=== PATIENT | male | born 1975 | race Caucasian/White ===

== ENCOUNTER → 2018-12-14 09:09 | Outpatient (CLI) | payer BC, SELFPAY ==
--- NOTE | 2018-12-14 09:19 | US_ITS ---
US scrotum HISTORY: ITS.REASON: SCROTOL PAIN ORDERING PHYSICIAN: Shaun Watts MD PATIENT AGE: 43 years Comparison: None FINDINGS: RIGHT TESTICLE: The right testicle has an unremarkable appearance measuring Right testicle. No testicular mass, hydrocele, spermatocele, or varicocele evident. Blood flow is noted to the right testicle. LEFT TESTICLE: The left testicle has an unremarkable appearance measuringLeft testicle. No mass, hydrocele, spermatocele, or varicocele evident. Blood flow is noted to the left testicle. IMPRESSION: Normal scrotal ultrasound.
== END ==
PROVIDERS: PCP Family Medicine; Visit Provider Family Medicine
DX: N50.82 Scrotal pain (principal)
CPT/HCPCS: 76870

== ENCOUNTER → 2020-03-04 08:26 | Outpatient (CLI) | payer BC, SELFPAY ==
--- NOTE | 2020-03-04 | CA_ITS ---
APPROVED REPORT EXAM: Comprehensive 2D, Doppler, and color-flow Echocardiogram Quality Control Auditor: Tete Gomez CRT Ht: 6 ft 0 in Wt: 145lbs BSA: 1.86 BP: 110/60 mmHg Indications: Lyme disease, cp, Richmond's disease 2D Dimensions LVOT 1.81 cm (M/F) 1.5-2.5 M-Mode Dimensions RVDd 1.80 cm (0.9-2.6) LVDd 3.84 cm (3.5-5.7) LVDs 2.88 cm (3.5-5.7) IVSd 1.12 cm (0.6-1.1) PWd 0.91 cm (0.6-1.1) EF (Teich) 50.10% FS 25.00% EDV (Teich) 63.50 mL ESV (Teich) 31.70 mL LV Diastology E/A Ratio 1.24 Mitral Valve MV A Velocity 47.00 (40-130 cm/s) Left Ventricle Left atrium is normal size, left ventricle is normal size, there is no concentric left ventricular hypertrophy, visually estimated ejection fraction 55% with no regional wall motion abnormality. Diastolic parameters are inconclusive. Right Ventricle Right atrium and right ventricular normal size and contractility. Aortic Valve Aortic valve is grossly normal, there is no aortic stenosis or aortic insufficiency. Mitral Valve Mitral valve is grossly normal, there is mild mitral regurgitation. Tricuspid Valve Tricuspid valve grossly normal, there is mild tricuspid regurgitation, tricuspid regurgitation jet velocity is inadequate for calculation of the right ventricular systolic pressure. Pulmonic Valve Pulmonic valve is poorly visualized. Great Vessels Aortic root is normal size. Pericardium No significant pericardial effusion noted. Conclusion 1. Normal left ventricular size, preserved left ventricular systolic function, visually estimated ejection fraction 55% with no regional wall motion abnormality, diastolic parameters are inconclusive. 2. Mild mitral and tricuspid regurgitation. 3. No significant pericardial effusion noted. Electronically signed by : Casey Markham, 03/04/2020 19:49:07
== END ==
PROVIDERS: PCP Family Medicine; Visit Provider Family Medicine
DX: A69.20 Lyme disease, unspecified (principal)
CPT/HCPCS: 93306

== ENCOUNTER → 2021-03-28 12:22 | Outpatient (CLI) | payer BC, SELFPAY ==
[2021-03-28 12:53] LABS: Uric Acid 5.2 mg/dl (3.5-8.5)
[2021-03-28 13:00] LABS: Erythrocyte Sedimentation Rate 4 mm/hr (0-15)
== END ==
PROVIDERS: Visit Provider Family Medicine
DX: M79.672 Pain in left foot (principal)
CPT/HCPCS: 84550; 85651; 86140

== ENCOUNTER → 2021-04-09 12:16 | Outpatient (CLI) | payer BC, SELFPAY ==
--- NOTE | 2021-04-09 12:28 | XR_ITS ---
PROCEDURE: XR FOOT LT MIN 3V CLINICAL INDICATION: LT FOOT PAIN COMPARISON: No exams were available for comparison FINDINGS: No fracture or dislocation. No lytic or blastic change. There is normal mineralization. The joint spaces are well-preserved. No significant degenerative/arthritic changes. No erosive changes evident. Other findings:None. IMPRESSION: No acute findings. Dictated by: Torsten Zaragoza MD 04/09/2021 12:54 Torsten Zaragoza MD in [place] 04/09/2021 12:54
== END ==
PROVIDERS: PCP Family Medicine; Visit Provider Family Medicine
DX: M79.672 Pain in left foot (principal)
CPT/HCPCS: 73630

== ENCOUNTER → 2022-02-24 17:11 | Outpatient (CLI) | payer BC, SELFPAY ==
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
== END ==
PROVIDERS: PCP Family Medicine; Visit Provider Family Medicine
DX: S60.221A Contusion of right hand, initial encounter (principal)
CPT/HCPCS: 73130

== ENCOUNTER → 2022-03-22 14:22 | Outpatient (CLI) | payer BC, SELFPAY ==
--- NOTE | 2022-03-22 14:28 | XR_ITS ---
FINAL REPORT CLINICAL HISTORY: FRACTURE OF FIFTH METACARPAL BONE, RIGHT HAND. COMPARISON: February 24, 2022 FINDINGS: AP, lateral and oblique views of the right hand were obtained. There is a fracture of the head of the right 5th metacarpal with slight volar angulation. There is no significant callus formation. There is no other osseous abnormality. The joint spaces are preserved. The soft tissues are normal. IMPRESSION: Fracture of the head of the 5th metacarpal with no significant callus formation. Reviewed, Interpreted and Dictated by Alison Burt MD Transcribed by Tera Lopez Authenticated by Alison Burt MD on 03/22/2022 04:19:44 PM [facility]
== END ==
PROVIDERS: PCP Family Medicine; Visit Provider Family Medicine
DX: S62.396D Other fracture of fifth metacarpal bone, right hand, subsequent encounter for fracture with routine healing (principal)
CPT/HCPCS: 73130

== ENCOUNTER → 2022-03-30 15:06 | Outpatient (CLI) | payer BC, SELFPAY ==
--- NOTE | 2022-03-30 15:13 | XR_ITS ---
FINAL REPORT CLINICAL HISTORY: FX OF 5TH METACARPAL BONE, f/u COMPARISON: March 22, 2022 FINDINGS: RIGHT HAND 3 views were obtained. There is a fracture of the 5th distal metacarpal. The bony alignment is stable. There is no significant callus formation. The joint spaces are intact. There is no soft tissue abnormality. IMPRESSION: 5th metacarpal fracture with no significant callus formation. Reviewed, Interpreted and Dictated by Jackson Ponce III, MD Transcribed by Dulce Maria Oconnell Authenticated by Jackson Ponce III, MD on 03/30/2022 04:23:04 PM [facility][1]
== END ==
PROVIDERS: PCP Family Medicine; Visit Provider Nurse Practitioner Family
DX: S62.396D Other fracture of fifth metacarpal bone, right hand, subsequent encounter for fracture with routine healing (principal)
CPT/HCPCS: 73130

== ENCOUNTER → 2022-04-13 14:36 | Outpatient (CLI) | payer BC, SELFPAY ==
--- NOTE | 2022-04-13 14:40 | XR_ITS ---
FINAL REPORT CLINICAL HISTORY: FX OF FIFTH METACARPAL BONE COMPARISON: March 30, 2022 FINDINGS: 3 views of the right hand were obtained. There is a mildly impacted fracture of the distal 5th metacarpal. Bony alignment is stable. There is no significant callus formation. The joint spaces are intact. There is no soft tissue abnormality. IMPRESSION: Stable fracture of the distal 5th metacarpal without significant callus formation. Reviewed, Interpreted and Dictated by Jackson Ponce III, MD Transcribed by Tera Lopez Authenticated and [facility]
== END ==
PROVIDERS: PCP Nurse Practitioner Family; Visit Provider Nurse Practitioner Family
DX: S62.396D Other fracture of fifth metacarpal bone, right hand, subsequent encounter for fracture with routine healing (principal)
CPT/HCPCS: 73130

== ENCOUNTER 2024-08-31 16:50 | Outpatient (CLI) | payer BC, SELFPAY ==
--- OUTSIDE RECORDS SUMMARY | 2024-08-31 16:53 | XMS_ITS ---
Author Organization [facility] Address [address] [place] [id number] Care Team Providers Care Laborer [place] Name Role Phone Shaun Watts Primary Care Provider [phone] Geovanny Gilliland Unavailable [phone] ALLERGIES No Known Allergies RESULTS Component Value Reference Range Notes P-Comprehensive Metabolic Pa ion (CMP) Reviewed date:08/14/2024 04:21:16 PM Interpretation:K+ 5.7 Performing Lab: Notes/Report: Test performed by [facility] [address] [place] [address] , [address], [place] [address] Amari Woodward MD, Work From Home CLIA: [id number] Sodium 137 135-145 mmol/L Potassium 5.7 3.5-5.3 mmol/L Chloride 99 97-108 mmol/L CO2 28 22-32 mmol/L Glucose 91 65-99 mg/dL BUN 9 6-20 mg/dL Creatinine 0.74 0.70-1.30 mg/dL Calcium 10.0 8.6-10.4 mg/dL eGFR by Creatinine 110 >59 mL/min/1.73m2 Protein 6.7 6.0-8.3 g/dL Albumin 4.7 3.5-5.3 g/dL Alkaline Phosphatase 62 40-129 IU/L ALT (SGPT) 22 <5-55 IU/L AST (SGOT) 15 <5-46 IU/L Bilirubin, Total 0.2 <0.2-1.2 mg/dL A/G Ratio 2.4 1.1-2.5 REASON FOR VISIT 6 month check, Needs colon cancer screening MEDICATIONS Medication SIG (Take, Route, Frequency, Duration) Notes Start Date End Date Status busPIRone HCl 5 MG 1 tab(s) orally 2 ti mes a day for 30 day(s) Active predniSONE 5 MG 1.5 tab(s) orally on ce a day Active Benztropine Mesylate 0.5 MG 1 tab(s) ora lly once a day (at bedtime) for 90 days 02/19/2010 Active Perphenazine 2 MG 1 tab(s) orally 2 ti mes a day for 30 day(s) Active Nurtec 75 MG 1 tab(s) orally elle y as needed maximum of 8 tabs in one month 06/28/2022 Active Fludrocortisone Acetate 0.1 MG 1 tab(s) orally once a day Active Hydrocortisone 2.5 % 1 ray applied topic ally 2 times a day Active ALPRAZolam 0.25 MG 1/2 tab(s) orally 3 times a day as needed 12/26/2018 Active Synthroid 88 MCG 1 tab(s) orally once daily Active Sertraline HCl 150 MG 1 capsule Orally O nce a day for 30 day(s) Active Losartan Potassium 25 MG 1 tablet orally once a day for 90 days Active IMMUNIZATIONS Vaccine Route Administration Date Status Comme nts Tamika Hendrickson (6months&older) IM Intramuscular 08/09/2024 Administered VITAL SIGNS Weight 146.0 lbs 08/09/2024 Blood pressure systolic 120 mm Hg 08/09/20 24 Blood pressure diastolic 80 mm Hg 024 Heart Rate 74 /min 08/09/2024 Height 73 in 08/09/2024 BMI 19.26 kg/m2 08/09/2024 Encounters Encounter Location Date Provider Diagnosis [facility] [address] [place], [place] [id number] 08/09/2024 Geovanny Gilliland Encounter for immunization Z23 ; Obsessive-compulsive disorder, unspecified type F42.9 ; Panic attacks F41.0 ; Primary hypertension I10 and Migraine without status migrainosus, not intractable, unspecified migraine type G43.909 ASSESSMENTS Encounter Date Diagnosis Assessment Notes Treatment Notes Treatment Clinical Notes 08/09/2024 Encounter for immunization (ICD-10 - Z23) 08/09/2024 Obsessive-compulsive disorder, unspecified type (ICD-10 - F42.9) 08/09/2024 Panic attacks (ICD-10 - F41.0) 08/09/2024 Primary hypertension (ICD-10 - I10) 08/09/2024 Migraine without status migrainosus, not intractable, unspecified migraine type (ICD-10 - G43.909) PLAN OF TREATMENT Medication Medication Name Sig Start Date Stop Date Notes Nurtec 75 MG 1 tab(s) orally elle y as needed maximum of 8 tabs in one month 06/28/2022 Next Appt Details Follow Up: 6 Months, Reason: Provider Name:Geovanny rincon, 02/11/2025 10:30:00 AM, [address] [facility], [address], [place], [place], [id number], Progress Notes * Examination Category Sub-Category Detail Notes General Examination HEENT: unremarkable Heart: RSR Lungs: clear to auscultatio n, bronchial breath sounds Abdomen: soft and nontender, no organomegaly or masses Extremities: no leg edema General Appearance: NAD Skin: normal, no rash. Neurologic Exam: Intact, gait normal Neck: supple, no lymphaden opathy Oral cavity: no lesions, mucosa m oist and WNL, no erythema Peripheral pulses: normal Back: mild dorsal kyphosis Chest: normal shape and exp ansion History and Physical Notes * HPI (History of Present Illness) Category Sub-Category Detail Notes Cardiology Short of Breath Chest Pain Palpitations Dizziness
--- OUTSIDE RECORDS SUMMARY | 2024-08-31 16:53 | XMS_ITS ---
Author Organization [facility] Address [address] [facility] [address] [facility] [address] [place] [id number] Care Team Providers Care Director Of Cardiology Name Role Phone Sahun Watts Primary Care Provider REASON FOR VISIT PA approved Encounters Encounter Location Date Provider Diagnosis [facility] [address] [facility] [address] [facility] [address] [place] [id number] 07/13/2024 Shaun Watts PLAN OF TREATMENT Next Appt Details Provider Name:Geovanny Hilton er, 02/11/2025 10:30:00 AM, [address] [facility], [address], [place], [id number],
--- OUTSIDE RECORDS SUMMARY | 2024-08-31 16:53 | XMS_ITS ---
Author Organization [facility] Address [address] [facility] [address] [facility] [address] [place] [id number] Care Team Providers Care Pulp Grinder Name Role Phone Shaun Watts Primary Care Provider [phone] Geovanny Willard [phone] REASON FOR VISIT Test results* Encounters Encounter Location Date Provider Diagnosis [facility] [address] [facility] [address] [facility] [address] [place] [id number] 08/14/2024 Geovanny Gilliland Primary hypertension I10 ASSESSMENTS Encounter Date Diagnosis Assessment Notes Treatment Notes Treatment Clinical Notes 08/14/2024 Primary hypertension (ICD-10 - I10) PLAN OF TREATMENT Pending Test Test Name Order Date H-CMP 08/14/2024 Next Appt Details Provider Name:Geovanny Hilton er, 02/11/2025 10:30:00 AM, [address] [facility] [address] [facility], [address], [place], [id number],
--- OUTSIDE RECORDS SUMMARY | 2024-08-31 16:54 | XMS_ITS | Patient Health Record ---
[facility] Address [address] [place] [id number] Care Team Providers Care Snag Grinder Name Role Phone Shaun Watts Primary Care Provider [phone] Geovanny Gilliland Unavailable [phone] ALLERGIES No Known Allergies RESULTS Component Value Reference Range Notes P-Comprehensive Metabolic Pa ion (CMP) Reviewed date:08/14/2024 04:21:16 PM Interpretation:K+ 5.7 Performing Lab: Notes/Report: Test performed by [facility] [address] [place] [address] , [address], [place] [address] Amari Woodward MD, Plug Assembler CLIA: [id number] Sodium 137 135-145 mmol/L Potassium 5.7 3.5-5.3 [...] 0.2 <0.2-1.2 mg/dL A/G Ratio 2.4 1.1-2.5 P-TSH Reviewed date:03/01/2024 11:59:10 AM Interpretation: Normal Performing Lab: Notes/Report: Test performed by [facility] [address] [place] [address] , [address], [place] [address] Amari Woodward MD, Plug Assembler CLIA: [id number] TSH 1.65 0.43-5.25 mU/L P-Comprehensive Metabolic Pa ion (CMP) Reviewed date:03/01/2024 11:59:38 AM Interpretation: Normal Performing Lab: Notes/Report: Test performed by [facility] [address] [place] [address] , [address], [place] [address] Amari Woodward MD, Plug Assembler CLIA: [id number] Sodium 138 135-145 mEq/L Potassium 4.4 3.5-5.3 mEq/L Chloride 101 97-108 mEq/L CO2 27 22-32 mEq/L Glucose 72 65-99 mg/dL BUN 10 6-20 mg/dL Creatinine 0.75 0.70-1.30 mg/dL Calcium 9.9 8.6-10.4 mg/dL eGFR by Creatinine 110 >59 mL/min/1.73m2 Protein 7.1 6.0-8.3 g/dL Albumin 5.0 3.5-5.3 g/dL Alkaline Phosphatase 72 40-129 IU/L ALT (SGPT) 17 <5-55 IU/L AST (SGOT) 15 <5-46 IU/L Bilirubin, Total 0.2 <0.2-1.2 mg/dL A/G Ratio 2.4 1.1-2.5 mg/dL REASON FOR REFERRAL No Information MEDICATIONS Medication SIG (Take, Route, Frequency, Duration) Notes Start Date End Date Status busPIRone HCl 5 MG 1 tab(s) orally 2 ti mes a day for 30 day(s) Active Sertraline HCl 150 MG 1 capsule Orally O nce a day for 30 day(s) Active Nurtec 75 MG 1 tab(s) orally elle y as needed maximum of 8 tabs in one month 06/28/2022 Active Fludrocortisone Acetate 0.1 MG 1 tab(s) orally once a day Active predniSONE 5 MG 1.5 tab(s) orally on ce a day Active Benztropine Mesylate 0.5 MG 1 tab(s) ora lly once a day (at bedtime) for 90 days 02/19/2010 Active Perphenazine 2 MG 1 tab(s) orally 2 ti mes a day for 30 day(s) Active Losartan Potassium 25 MG 1 tablet orally once a day for 90 days Active Hydrocortisone 2.5 % 1 ray applied topic ally 2 times a day Active ALPRAZolam 0.25 MG 1/2 tab(s) orally 3 times a day as needed 12/26/2018 Active Synthroid 88 MCG 1 tab(s) orally once daily Active IMMUNIZATIONS Vaccine Route Administration Date Status Comme nts COVID 19 Pfizer Unknown 04/15/2021 Administered COVID 19 Pfizer Unknown 05/16/2021 Administered COVID 19 Pfizer Unknown 11/14/2021 Administered Fluzone Intradermal Quad private(18-64yrs) ID Intradermal 07/12/2016 Administered Fluzone Quad (6months&older) IM Intramuscular 06/30/2015 Administered Fluzone Quad (6months&older) IM Intramuscular 07/25/2017 Administered Fluzone Quad (6months&older) IM Intramuscular 07/31/2018 Administered Fluzone Quad (6months&older) IM Intramuscular 2019 Administered Fluzone Quad (6months&older) IM Intramuscular 10/14/2020 Administered Fluzone Quad (6months&older) IM Intramuscular 07/28/2022 Administered Fluzone Quad (6months&older) IM Intramuscular 07/18/2023 Pending Fluzone Quad (6months&older) IM Intramuscular 08/09/2024 Administered Hepatitis A (adult) Unknown 10/11/2018 Administered Tetanus Tdap-Adacel (over 7yrs) IM Intramuscular 08/07/2012 Administered Tetanus Tdap-Adacel (over 7yrs) IM Intramuscular 06/28/2022 Administered xFlu shot-36 months and older IM Intramuscular 08/03/2010 Administered xFlu shot-36 months and older IM Intramuscular 08/02/2011 Administered xFluzone (6mos and older)-trivalent IM Intramuscular 07/22/2014 Administered xFluzone Intradermal (18-64yrs)-trivalent ID Intradermal 08/07/2012 Administered xFluzone Intradermal (18-64yrs)-trivalent ID Intradermal 07/26/2013 Administered SOCIAL HISTORY Sex Assigned At : Social History Observation Description Sex Assigned At Unknown PROBLEMS Problem Type ICD Code Onset Dates Problem Status W/U Status Risk SNOMED Code Notes Problem Depression with anxiety (F41.8) Active confirmed 010135112 Problem Bipolar disorder, in partial remission, most recent episode depressed (F31.75) Active confirmed 03634968 Problem Other headache syndrome (G44.89) Active confirmed 787190165 Problem Other insomnia (G47.09) Active confirmed 086670750 Problem Contusion of right hand, initial encounter (S60.221A) Active confirmed 9210310 Problem Other fracture of fifth metacarpal bone, right hand, subsequent encounter for fracture with routine healing (S62.396D) Active confirmed 839155290 Problem Obsessive compulsive disorder (F42) Active confirmed 294206740 Problem Chronic fatigue (R53.82) Active confirmed 93326201 Problem Panic attacks (F41.0) Active confirmed 792509557 Problem Migraine without status migrainosus, not intractable, unspecified migraine type (G43.909) Active confirmed 01125333 Problem Kidney stone on right side (N20.0) Active confirmed 10594370 Problem Hyperlipidemia, unspecified hyperlipidemia type (E78.5) Active confirmed 66171096 Problem Hypothyroidism, unspecified type (E03.9) Active confirmed 88544757 Problem Lyme disease (A69.20) Active confirmed 75961675 Problem Atopic dermatitis, unspecified type (L20.9) Active confirmed 02660062 Problem [place] disease (E27.1) Active confirmed 953775014 Problem Obsessive-compulsiv e disorder, unspecified type (F42.9) Active confirmed 307418205 Problem Manic episode (F30.9) Active confirmed 704627769 Problem Bipolar 2 disorder, major depressive episode (F31.81) Active confirmed 47861314 Problem Paranoia (F22) Active confirmed 7697627 09 Problem Primary hypertension (I10) Active confirmed 30609432 Problem Closed displaced fracture of other part of fifth metacarpal bone of right hand, initial encounter (S62.396A) Active confirmed 256585645 VITAL SIGNS Heart Rate 74 /min 08/09/2024 Blood pressure diastolic 80 mm Hg 08/09/2024 Height 73 in 08/09/2024 Blood pressure systolic 120 mm Hg 08/09/2024 Weight 146.0 lbs 08/09/2024 BMI 19.26 kg/m2 08/09/2024 Encounters Encounter Location Date Provider Diagnosis [facility] [address] [facility] [address] [place], [place] [phone] 02/27/2024 Geovanny Gilliland Juan Jose disease E27. 1 ; Obsessive compulsive disorder F42 ; Bipolar disorder, in partial remission, most recent episode depressed F31.75 ; Primary hypertension I10 ; Other headache syndrome G44.89 ; Migraine without status migrainosus, not intractable, unspecified migraine type G43.909 and Hypothyroidism, unspecified type E03.9 [facility] [address] [facility] [address] [facility] [address] [place], [place] [id number] 04/09/2024 Shaun [place] [facility] [address] [facility] [address] [facility] [address] [place], [place] [phone] 07/13/2024 Shaun [place] [facility] [address] [facility] [address] [place], [place] [id number] 08/09/2024 Geovanny Gilliland Encounter for immunization Z23 ; Obsessive-compulsive disorder, unspecified type F42.9 ; Panic attacks F41.0 ; Primary hypertension I10 and Migraine without status migrainosus, not intractable, unspecified migraine type G43.909 [facility] [address] [place], [place] [id number] 08/14/2024 Geovanny Gilliland Primary hypertension I10 ASSESSMENTS Encounter Date Diagnosis Assessment Notes Treatment Notes Treatment Clinical Notes 08/09/2024 Encounter for immunization (ICD-10 - Z23) 08/09/2024 Obsessive-compulsive disorder, unspecified type (ICD-10 - F42.9) 02/27/2024 Obsessive compulsive disorder (ICD-10 - F42) 02/27/2024 [place] disease (ICD-10 - E27.1) 02/27/2024 Bipolar disorder, in partial remission, most recent episode depressed (ICD-10 - F31.75) 08/14/2024 Primary hypertension (ICD-10 - I10) 08/09/2024 Panic attacks (ICD-10 - F41.0) 08/09/2024 Primary hypertension (ICD-10 - I10) 02/27/2024 Primary hypertension (ICD-10 - I10) 02/27/2024 Other headache syndrome (ICD-10 - G44.89) 08/09/2024 Migraine without status migrainosus, not intractable, unspecified migraine type (ICD-10 - G43.909) 02/27/2024 Migraine without status migrainosus, not intractable, unspecified migraine type (ICD-10 - G43.909) 02/27/2024 Hypothyroidism, unspecified type (ICD-10 - E03.9) PLAN OF TREATMENT Pending Test Test Name Order Date Cologuard 04/10/2024 H-CMP 08/14/2024 Next Appt Details Provider Name:Geovanny Mcbride Yobani er, 02/11/2025 10:30:00 AM, [address], [address], [place], [place], [id number], Insurance Providers Payer Name Payer Address Payer Phone Subscriber Number Group Number Insured Name Patient Relationship to Insured Coverage Start Date Coverage End Date [facility] [address] [place] [address] [id number] VIET PAPPAS Self - patient is the insured MEDICAL (GENERAL) HISTORY Medical History History ICD Code [place]'s disease, followed by Endo at [facility] depression/anxiety osteoporosis, Dx: Jul 2014, followed by Endo at Impaired fasting glucose, Dx: 2016, foll owed by Endo at kidney stones, right side, Dx: 2018 Lyme disease 01/2020 Surgical History Surgery Date(Month/Year) Hospitalization History Reason Date(Month/Year) Anxiety [facility] 08/20/15 [facility] - Vomiting/Dehydration 2015 [facility] - abdominal pain, back nano n 12/14/18
[2024-08-31 17:10] LABS: Albumin Level 4.7 g/dl (3.5-5.0); Chloride 100 mmol/L (98-107); Potassium 3.9 mmoL/L (3.5-5.1); Sodium 135 mmol/L (136-145)
[2024-08-31 17:13] LABS: Alanine Aminotransferase 23 U/L (12-78); Albumin/Globulin Ratio 1.8 (1.1-1.8); Alkaline Phosphatase 55 U/L (38-126); Anion Gap 10.9 mEq/L (5-15); Aspartate Amino Transferase 27 U/L (17-59); Bilirubin,Total 0.4 mg/dl (0.2-1.3); Blood Urea Nitrogen 11 mg/dl (9-20); Carbon Dioxide 28 mmol/L (22.0-30.0); Estimated Glomerular Filt Rate 119 ml/min (>60); GFR (African American) 144 ML/MIN (>60); Globulin 2.6 g/dL (1.3-3.2); Total Protein,Serum 7.3 g/dl (6.3-8.2)
[2024-08-31 17:14] LABS: Calcium 9.4 mg/dl (8.4-10.2); Glucose 99 mg/dl (74-100)
== END 2024-08-31 23:59 | disposition home or self-care (01) ==
LOC: LAB 16:52
PROVIDERS: PCP Family Medicine; Visit Provider Family Medicine
DX: I10 Essential (primary) hypertension (principal)
CPT/HCPCS: 36415; 80053

== ENCOUNTER 2024-12-20 11:41 | Outpatient (CLI) | payer BC, SELFPAY ==
[2024-12-20 12:25] LABS: Albumin Level 4.3 g/dl (3.5-5.0); Chloride 101 mmol/L (98-107); Potassium 4.1 mmoL/L (3.5-5.1); Sodium 135 mmol/L (136-145)
[2024-12-20 12:28] LABS: Alanine Aminotransferase 24 U/L (12-78); Albumin/Globulin Ratio 2.2 (1.1-1.8); Alkaline Phosphatase 60 U/L (38-126); Anion Gap 8.1 mEq/L (5-15); Aspartate Amino Transferase 22 U/L (17-59); Bilirubin,Total < 0.1 mg/dl (0.2-1.3); Blood Urea Nitrogen 11 mg/dl (9-20); Calcium 9.4 mg/dl (8.4-10.2); Carbon Dioxide 30 mmol/L (22.0-30.0); Estimated Glomerular Filt Rate 143 ml/min (>60); GFR (African American) 173 ML/MIN (>60); Glucose 91 mg/dl (74-100); Total Protein,Serum 6.3 g/dl (6.3-8.2)
[2024-12-20 13:57] LABS: Basophils # 0.1 K/mm3 (0-0.2); Basophils % 0.8 % (0.1-2.0); Eosinophils # 0.2 K/mm3 (0.0-0.4); Eosinophils % 2.5 % (0.1-12.0); Hematocrit 39.1 % (42.0-52.0); Lymphocytes # 1.7 K/mm3 (0.7-4.5); Lymphocytes % 22.9 % (10-50); Mean Corpuscular HGB Conc 33.2 g/dL (31.8-35.4); Mean Corpuscular Hemoglobin 31.4 pg (27.0-31.2); Mean Corpuscular Volume 94.4 fl (80-94); Monocytes # 0.7 K/mm3 (0.1-1.0); Monocytes % 9.2 % (1.7-9.3); Neutrophils # 4.7 K/mm3 (1.8-7.8); Neutrophils % 62.1 % (37.0-80.0); Platelet Count 387 K/mm3 (142-424); Red Blood Count 4.14 M/mm3 (4.60-6.20); Red Cell Distribution Width 12.8 % (11.5-17.5); White Blood Count 7.6 K/mm3 (4.8-10.8)
== END 2024-12-20 23:59 | disposition home or self-care (01) ==
LOC: LAB 11:43
PROVIDERS: PCP Family Medicine; Visit Provider Physician Assistant
DX: U07.1 COVID-19 (principal)
CPT/HCPCS: 36415; 80053; 85025

== ENCOUNTER 2025-01-02 15:38 | Outpatient (CLI) | payer BC, SELFPAY ==
[2025-01-02 16:37] LABS: Basophils # 0.1 K/mm3 (0-0.2); Basophils % 0.9 % (0.1-2.0); Eosinophils # 0.1 K/mm3 (0.0-0.4); Eosinophils % 2.4 % (0.1-12.0); Hematocrit 44.1 % (42.0-52.0); Lymphocytes % 33.7 % (10-50); Mean Corpuscular Hemoglobin 31.3 pg (27.0-31.2); Mean Corpuscular Volume 91.9 fl (80-94); Mean Platelet Volume 11.3 fl (7.4-10.4); Monocytes # 0.7 K/mm3 (0.1-1.0); Monocytes % 11.9 % (1.7-9.3); Neutrophils # 2.9 K/mm3 (1.8-7.8); Neutrophils % 50.8 % (37.0-80.0); Platelet Count 268 K/mm3 (142-424); Red Cell Distribution Width 12.7 % (11.5-17.5); Reticulocyte % (Auto) 1.4 % (0.9-3.2); White Blood Count 5.8 K/mm3 (4.8-10.8)
[2025-01-02 18:21] LABS: Albumin Level 5.5 g/dl (3.5-5.0); Chloride 92 mmol/L (98-107); Potassium 4.8 mmoL/L (3.5-5.1); Sodium 127 mmol/L (136-145)
[2025-01-02 18:24] LABS: Alanine Aminotransferase 26 U/L (12-78); Albumin/Globulin Ratio 2.5 (1.1-1.8); Alkaline Phosphatase 67 U/L (38-126); Anion Gap 12.8 mEq/L (5-15); Aspartate Amino Transferase 25 U/L (17-59); Bilirubin,Total 0.5 mg/dl (0.2-1.3); Blood Urea Nitrogen 8 mg/dl (9-20); Calcium 9.9 mg/dl (8.4-10.2); Carbon Dioxide 27 mmol/L (22.0-30.0); Estimated Glomerular Filt Rate 119 ml/min (>60); GFR (African American) 144 ML/MIN (>60); Globulin 2.2 g/dL (1.3-3.2); Glucose 95 mg/dl (74-100); Iron 91 ug/dL (49-181); Total Protein,Serum 7.7 g/dl (6.3-8.2)
[2025-01-02 18:38] LABS: Folate > 20.00 ng/mL
[2025-01-02 18:59] LABS: Ferritin 175 ng/ml (17.9-464)
[2025-01-02 19:01] LABS: 25-OH Vitamin D, Total 41.7 ng/mL (30-100)
[2025-01-02 21:12] LABS: Vitamin B12 > 1000 pg/mL (239-931)
== END 2025-01-02 23:59 | disposition home or self-care (01) ==
LOC: LAB 15:39
PROVIDERS: PCP Family Medicine; Visit Provider Physician Assistant
DX: D64.9 Anemia, unspecified (principal)
CPT/HCPCS: 36415; 80053; 82306; 82607; 82728; 82746; 83540; 85025; 85044

== ENCOUNTER 2025-03-16 15:19 | Outpatient (CLI) | payer BC, SELFPAY ==
[2025-03-16 16:22] LABS: Albumin Level 4.4 g/dl (3.5-5.0); Chloride 104 mmol/L (98-107); Sodium 135 mmol/L (136-145)
[2025-03-16 16:23] LABS: Potassium 4.2 mmoL/L (3.5-5.1)
[2025-03-16 16:25] LABS: Alanine Aminotransferase 22 U/L (12-78); Anion Gap 8.2 mEq/L (5-15); Aspartate Amino Transferase 22 U/L (17-59); Blood Urea Nitrogen 15 mg/dl (9-20); Carbon Dioxide 27 mmol/L (22.0-30.0); Estimated Glomerular Filt Rate 102 ml/min (>60); GFR (African American) 124 ML/MIN (>60)
[2025-03-16 16:26] LABS: Alkaline Phosphatase 73 U/L (38-126); Calcium 9.3 mg/dl (8.4-10.2); Globulin 2.2 g/dL (1.3-3.2); Glucose 108 mg/dl (74-100); Total Protein,Serum 6.6 g/dl (6.3-8.2)
[2025-03-16 16:30] LABS: Bilirubin,Total 0.1 mg/dl (0.2-1.3)
== END 2025-03-16 23:59 | disposition home or self-care (01) ==
LOC: LAB 15:21
PROVIDERS: PCP Family Medicine; Visit Provider Family Medicine
DX: E87.1 Hypo-osmolality and hyponatremia (principal)
CPT/HCPCS: 36415; 80053

== ENCOUNTER 2025-07-15 15:29 | Outpatient (CLI) | payer BC, SELFPAY ==
--- OUTSIDE RECORDS SUMMARY | 2025-01-02 10:45 | XMS_ITS ---
[facility] Organization [facility] [place] Address [address] [facility] [address] [place] [id number] Care Team Providers Care Traffic Rate Clerk Name Role Phone Shaun Watts Primary Care Provider Candi Schmitt Unavailable [phone] Allergies No Known Allergies Results Component Value Reference Range Notes H-CBC Reviewed date:01/03/2025 01:53:26 PM Interpretation: Performing Lab: Notes/Report: WBC 5.8 4.8-10.8 K/mm3 RBC 4.80 4.60-6.20 M/mm3 HGB 15.0 14.1-18.0 g/dL HCT 44.1 42.0-52.0 % MCV 91.9 80-94 fl MCH 31.3 27.0-31.2 pg MCHC 34.0 31.8-35.4 g/dL RDW 12.7 11.5-17.5 % PLT 268 142-424 K/mm3 MPV 11.3 7.4-10.4 fl NE% 50.8 37.0-80.0 % LY% 33.7 10-50 % MO% 11.9 1.7-9.3 % EO% 2.4 0.1-12.0 % BA% 0.9 0.1-2.0 % NE# 2.9 1.8-7.8 K/mm3 LY# 2.0 0.7-4.5 K/mm3 MO# 0.7 0.1-1.0 K/mm3 EO# 0.1 0.0-0.4 K/mm3 BA# 0.1 0-0.2 K/mm3 H-VITAMIN D Reviewed date:01/03/2025 01:53:26 PM Interpretation: Performing Lab: Notes/Report: TVITD 41.7 30-100 ng/mL Deficient <20 ng/mL Insufficient 20-30 ng/mL Sufficient 30-100 ng/mL Potential Toxicity >100 ng/mL H-CMP Reviewed date:01/03/2025 01:53:26 PM Interpretation: Performing Lab: Notes/Report: NA 127 136-145 mmol/L K 4.8 3.5-5.1 mmoL/L CL 92 98-107 mmol/L CO2 27 22.0-30.0 mmol/L GAP 12.8 5-15 mEq/L BUN 8 9-20 mg/dl CREATT 0.70 0.66-1.25 mg/dl GFRAA 144 >60 ML/MIN EGFR 119 >60 ml/min GLU 95 74-100 mg/dl CA 9.9 8.4-10.2 mg/dl BILIT 0.5 0.2-1.3 mg/dl AST 25 17-59 U/L ALT 26 12-78 U/L TP 7.7 6.3-8.2 g/dl ALB 5.5 3.5-5.0 g/dl GLOB 2.2 1.3-3.2 g/dL AGRATIO 2.5 1.1-1.8 ALP 67 38-126 U/L H-Folate Reviewed date:01/03/2025 01:53:26 PM Interpretation: Performing Lab: Notes/Report: FOL > 20.00 Normal Adult: 2.76->20 ng/mL Folate Deficent: 1.04-2.79ng/mL H-VITAMIN B12 Reviewed date:01/03/2025 01:53:26 PM Interpretation: Performing Lab: Notes/Report: VITB12 > 1000 239-931 pg/mL H-Retic count Reviewed date:01/03/2025 01:53:26 PM Interpretation: Performing Lab: Notes/Report: SOBEIDA 1.4 0.9-3.2 % H-Ferritin Reviewed date:01/03/2025 01:53:26 PM Interpretation: Performing Lab: Notes/Report: KP 175 17.9-464 ng/ml H-Iron Reviewed date:01/03/2025 01:53:26 PM Interpretation: Performing Lab: Notes/Report: 91 49-181 ug/dL TEN-Upper Respiratory PCR Reviewed date:01/08/2025 04:49:19 PM Interpretation:not performed, quantity no sufficient Performing Lab: Notes/Report: not performed, quantity no sufficient REASON FOR VISIT discuss blood work and he is weak Medications Medication SIG (Take, Route, Frequency, Duration) Notes Start Date End Date Status Losartan Potassium 25 MG 1 tablet orally once a day; Duration: 90 days Active Perphenazine 4 MG 1 tab(s) Orally 2 ti mes a day Active busPIRone HCl 5 MG 1 tab(s) orally 2 ti mes a day; Duration: 30 day(s) Active predniSONE 5 MG 1.5 tab(s) orally on ce a day Active Benztropine Mesylate 0.5 MG 1 tab(s) ora lly once a day (at bedtime); Duration: 90 days 02/19/2010 Active Hydrocortisone 2.5 % 1 ray applied topic ally 2 times a day Active ALPRAZolam 0.25 MG 1/2 tab(s) orally 3 times a day as needed 12/26/2018 Active Sertraline HCl 150 MG 1 capsule Orally O nce a day; Duration: 30 day(s) Active Synthroid 88 MCG 1 tab(s) orally once daily Active Fludrocortisone Acetate 0.1 MG 1 tab(s) orally once a day Active Nurtec 75 MG 1 tab(s) orally elle y as needed maximum of 8 tabs in one month 06/28/2022 Active Problems Problem Type SNOMED Code ICD Code Onset Dates Problem Status W/U Status Risk Notes Problem Anemia (532567934) Anemia, unspecified type (D64.9) Active confirmed Vital Signs Weight 144.2 lbs 01/02/2025 Blood pressure systolic 140 mm Hg 01/03/20 25 Blood pressure diastolic 90 mm Hg 025 Heart Rate 88 /min 01/02/2025 Height 73 in 01/02/2025 BMI 19.02 kg/m2 01/02/2025 Encounters Encounter Location Date Provider Diagnosis [facility] [address] [place], [place] [id number] 01/02/2025 Candi Crowdy COVID-19 U07.1 ; Ane fareed, unspecified type D64.9 ; Renal insufficiency N28.9 and Elevated liver enzymes R74.8 Assessments Encounter Date Diagnosis (ICD Code) Assessment Notes Treatment Notes Treatment Clinical Notes Section Notes 01/02/2025 COVID-19 (ICD-10 - U07.1) His immune system is likely down from recently having covid. Will check labs and a respiratory panel. 01/02/2025 Anemia, unspecified type (ICD-10 - D64.9) 01/02/2025 Renal insufficiency (ICD-10 - N28.9) 01/02/2025 Elevated liver enzymes (ICD-10 - R74.8) Plan Of Treatment Treatment Notes Assessment Notes COVID-19 His immune system is likely down from recently having covid. Will check labs and a respiratory panel. Next Appt Details Follow Up: via phone to repo rt test results, Reason: Provider Name:Geovanny Hilton er, 10/14/2025 11:30:00 AM, [address] [facility] [address] [facility], [address] , [place], [place], [id number], Progress Notes * VIET PAPPASDOB:1975 (49 yo M)Acc No.[id number]:01/02/2025 Progress Notes Patient: VIET LAWRENCE Provider: JUDE Joe :1975 A ge:49 Y S ex:Male Date:01/02/2025 Address:[address] [place], [place] [id number] Pcp:Shaun Watts Subjective: * Chief Complaints: * 1 . Discuss blood work and he is weak. * HPI: C onstitutional: The patient is here today with c/o fatigue and would like to discuss his recent lab studies. Pt states he gets dizzy and it is worse with bending over. He was feeling better but has been very fatigued since yesterday. He is unsure if this is due to the anemia or if he has picked up another illness. 49 year old male presents with c/o fatigue. * ROS: D ERMATOLOGY: no R delio. n o H marvin. G ASTROENTEROLOGY: no N ausea. n o V omiting. n o D iarrhea.? U ROLOGY: no D ifficulty urinating. n o B lood in urine. * Medical History: A ddison's disease, followed by Endo at , OCD, Depression/anxiety, osteoporosis, Dx: Jul 2014, followed by Endo at , Impaired fasting glucose, Dx: 2016, followed by Endo at , kidney stones, right side, Dx: 2018, Lyme disease 01/2020. * Hospitalization/Major Diagno stic Procedure: A nxiety [facility] ER 08/20/15, [place] [facility] - Vomiting/Dehydration 12/2015, [place] [facility] - abdominal pain, back pain 12/14/18. * Family History: F ather: alive, emphysema. M other: alive. * Social History: C URRENT TOBACCO USE S moking Status: Patient does NOT smoke. 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 Past smoking status: no. * Medications: T aking Nurtec 75 MG Tablet Disintegrating 1 tab(s) orally daily as needed maximum of 8 tabs in one month , Taking Sertraline HCl 150 MG Capsule 1 capsule Orally Once a day , Taking Hydrocortisone 2.5 % Cream 1 ray applied topically 2 times a day , Taking ALPRAZolam 0.25 MG Tablet 1/2 tab(s) orally 3 times a day as needed , Taking Synthroid 88 MCG Tablet 1 tab(s) orally once daily , Taking Fludrocortisone Acetate 0.1 MG Tablet 1 tab(s) orally once a day , Taking predniSONE 5 MG Tablet 1.5 tab(s) orally once a day , Taking Benztropine Mesylate 0.5 MG Tablet 1 tab(s) orally once a day (at bedtime) , Taking Perphenazine 4 MG Tablet 1 tab(s) Orally 2 times a day , Taking busPIRone HCl 5 MG Tablet 1 tab(s) orally 2 times a day , Taking Losartan Potassium 25 MG Tablet 1 tablet orally once a day , Medication List reviewed and reconciled with the patient * Allergies: N .K.D.A. Objective: * Vitals: W t:144.2, Temp:97.6, BP:140/90, HR:88, Nurse:JAN, Ht: 73, BMI:19.02. * Examination: G eneral Examination: General Appearance: N AD. H EENT: u nremarkable.?Oral cavity: n o lesions, mucosa moist and WNL, no erythema. N tre: s upple, no lymphadenopathy. C hest: n ormal shape and expansion. H eart: R SR. L ungs: c lear to auscultation. A bdomen: bowel sounds present, soft and nontender, no organomegaly or masses, no guarding or rigidity. N eurologic Exam: I ntact, gait normal. S kin: n ormal, no rash. P eripheral pulses: n ormal (2+) bilaterally. E xtremities: n o leg edema. Assessment: * Assessment: 1. C OVID-19 - U07.1 (Primary) 2 . A nemia, unspecified type - D64.9 ? 3 . R enal insufficiency - N28.9 4 . E levated liver enzymes - R74.8 Plan: * Treatment: Notes: His immune system is likely down from recently having covid. Will check labs and a respiratory panel.??2.?Anemia, unspecified type?LAB: H-CBC (Collection Date & Time - 01/02/2025 03:49 PM)* Value Reference Range W BC 5.8 4.8-10.8 - K/mm3 * R BC 4.80 4.60-6.20 - M/mm3 * H GB 15.0 14.1-18.0 - g/dL * H CT 44.1 42.0-52.0 - % * M CV 91.9 80-94 - fl * M CH 31.3 H 27.0-31.2 - pg * M CHC 34.0 31.8-35.4 - g/dL * R DW 12.7 11.5-17.5 - % * P LT 268 142-424 - K/mm3 * M PV 11.3 H 7.4-10.4 - fl * N E% 50.8 37.0-80.0 - % * L Y% 33.7 10-50 - % * M O% 11.9 H 1.7-9.3 - % * E O% 2.4 0.1-12.0 - % * B A% 0.9 0.1-2.0 - % * N E# 2.9 1.8-7.8 - K/mm3 * L Y# 2.0 0.7-4.5 - K/mm3 * M O# 0.7 0.1-1.0 - K/mm3 * E O# 0.1 0.0-0.4 - K/mm3 * B A# 0.1 0-0.2 - K/mm3 * Candi Schmitt 01/03/2025 1:5 3:20 PM > see TE ?LAB: H-VITAMIN D (Collection Date & Time - 01/02/2025 03:49 PM)* Value Reference Range T VITD 41.7 30-100 - ng/mL * Candi Schmitt 01/03/2025 1:5 3:20 PM > see TE ?LAB: H-Folate (Collection Date & Time - 01/02/2025 03:49 PM)* Value Reference Range F OL > 20.00 - ng/mL * Candi Schmitt 01/03/2025 1:5 3:20 PM > see TE ?LAB: H-VITAMIN B12 (Collection Date & Time - 01/02/2025 03:49 PM)* Value Reference Range V ITB12 > 1000 H 239-931 - pg/mL * Candi Schmitt 01/03/2025 1:5 3:20 PM > see TE ?LAB: H-Retic count (Collection Date & Time - 01/02/2025 03:49 PM)* Value Reference Range R ETA 1.4 0.9-3.2 - % * Candi Schmitt 01/03/2025 1:5 3:20 PM > see TE ?LAB: H-Ferritin (Collection Date & Time - 01/02/2025 03:49 PM)* Value Reference Range F ER 175 17.9-464 - ng/ml * Candi Schmitt 01/03/2025 1:5 3:20 PM > see TE ?LAB: H-Iron (Collection Date & Time - 01/02/2025 03:49 PM)* Value Reference Range F E 91 49-181 - ug/dL * KeshiaCandi Mchugh 01/03/2025 1:5 3:20 PM > see TE 3.?Renal insufficiency?LAB: H-CMP (Collection Date & Time - 01/02/2025 03:49 PM)* Value Reference Range N A 127 L 136-145 - mmol/L * K 4.8 3.5-5.1 - mmoL/L * C L 92 L 98-107 - mmol/L * C O2 27 22.0-30.0 - mmol/L * G AP 12.8 5-15 - mEq/L * B UN 8 L 9-20 - mg/dl * C REATT 0.70 0.66-1.25 - mg/dl * G FRAA 144 >60 - ML/MIN * E GFR 119 >60 - ml/min * G YAMILE 95 74-100 - mg/dl * C A 9.9 8.4-10.2 - mg/dl * B ILIT 0.5 0.2-1.3 - mg/dl * A ST 25 17-59 - U/L * A LT 26 12-78 - U/L * T P 7.7 6.3-8.2 - g/dl * A LB 5.5 H 3.5-5.0 - g/dl * G LOB 2.2 1.3-3.2 - g/dL * A GRATIO 2.5 H 1.1-1.8 - * A LP 67 38-126 - U/L * Ashish Schmittchris Mchugh 01/03/2025 1:5 3:20 PM > see TE * Procedure Codes: 3 077F SYST BP = 140 MM HG6 IT, 3080F DIAST BP = 90 MM HG * Follow Up: v ia phone to report test results * Images: Billing Information: * Visit Code: 26167 Office Visit, Est Pt., Level 4. * Procedure Codes: 3077F SYST BP = 140 MM HG6 IT. 3080F DIAST BP = 90 MM HG. * Electronic signature of JUDE Diaz on 07/15/2025 at 03:33 PM EDT Sign off status: Pending * Provider: JUDE Joe Date: 0 01/02/2025 Generated for Printi ng/Faxing/eTransmitting on: 0 07/15/2025 03:33 PM EDT History and Physical Notes * HPI (History of Present Illness) Category Sub-Category Detail Notes Category Not es Constitutional fatigue Examination Category Sub-Category Detail Notes Category Not es General Examination HEENT: unremarkable Heart: RSR Lungs: clear to auscultatio n Abdomen: bowel sounds present , soft and nontender, no organomegaly or masses, no guarding or rigidity Extremities: no leg edema General Appearance: NAD Skin: normal, no rash Neurologic Exam: Intact, gait normal Neck: supple, no lymphaden opathy Oral cavity: no lesions, mucosa m oist and WNL, no erythema Peripheral pulses: normal (2+) bilatera lly Chest: normal shape and exp ansion
--- OUTSIDE RECORDS SUMMARY | 2025-02-11 06:45 | XMS_ITS ---
[facility] Organization [facility] Address [address] [place] [address] [place] [id number] Care Team Providers Care Validation Specialist Name Role Phone Shaun Watts Primary Care Provider [phone] Geovanny Gilliland Unavailable [phone] Allergies No Known Allergies REASON FOR VISIT 6 mo ck up, Needs colon cancer screening, Tdap, & shingles vaccine Medications Medication SIG (Take, Route, Frequency, Duration) Notes Start Date End Date Status Nurtec 75 MG 1 tab(s) orally elle y as needed maximum of 8 tabs in one month 06/28/2022 Active Clotrimazole-Betamethasone 1-0.05 % 1 application Externally Twice a day 02/11/2025 Active busPIRone HCl 5 MG 1 tab(s) orally 2 ti mes a day; Duration: 30 day(s) Active Perphenazine 4 MG 1 tab(s) Orally 2 ti mes a day Active predniSONE 5 MG 1.5 tab(s) orally on ce a day Active Losartan Potassium 25 MG 1 tablet orally once a day; Duration: 90 days Active Synthroid 88 MCG 1 tab(s) orally once daily Active Fludrocortisone Acetate 0.1 MG 1 tab(s) orally once a day Active ALPRAZolam 0.25 MG 1 tablet orally 3 ti mes a day as needed 02/11/2025 Active Benztropine Mesylate 0.5 MG 1 tab(s) ora lly once a day (at bedtime); Duration: 90 days 02/19/2010 Active Hydrocortisone 2.5 % 1 ray applied topic ally 2 times a day Active Sertraline HCl 150 MG 1 capsule Orally O nce a day; Duration: 30 day(s) Active Vital Signs Weight 145.4 lbs 02/11/2025 Blood pressure systolic 106 mm Hg 02/12/20 25 Blood pressure diastolic 72 mm Hg 025 Heart Rate 78 /min 02/11/2025 Height 73 in 02/11/2025 BMI 19.18 kg/m2 02/11/2025 Encounters Encounter Location Date Provider Diagnosis [facility] [address] [place] [address] [place], [place] [phone] 02/11/2025 Geovanny Gilliland Huerfano disease E27. 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) 02/11/2025 Obsessive-compuls tyrel disorder, unspecified type (ICD-10 - F42.9) 02/11/2025 Depression with anxiety (ICD-10 - F41.8) 02/11/2025 Hypothyroidism, unspecified type (ICD-10 - E03.9) 02/11/2025 Bipolar 2 disorder, major depressive episode (ICD-10 - F31.81) 02/11/2025 Primary hypertension (ICD-10 - I10) 02/11/2025 Angular stomatitis (ICD-10 - K13.0) 02/11/2025 Migraine without status migrainosus, not intractable, unspecified migraine type (ICD-10 - G43.909) 02/11/2025 Hyponatremia (ICD-10 - E87.1) 02/11/2025 Body mass index (BMI) of 19.0 to 19.9 in adult (ICD-10 - Z68.1) Plan Of Treatment Medication Medication Name Sig Start Date Stop Date Notes Nurtec 75 MG 1 tab(s) orally elle y as needed maximum of 8 tabs in one month 06/28/2022 Clotrimazole-Betamethasone 1-0.05 % 1 application Externally Twice a day 02/11/2025 Losartan Potassium 25 MG 1 tablet orally once a day; Duration: 90 days ALPRAZolam 0.25 MG 1 tablet orally 3 ti mes a day as needed 02/11/2025 Pending Test Test Name Order Date CMP 02/11/2025 Next Appt Details Follow Up: 3 Months, Reason: Provider Name:Geovanny Hilton er, 10/14/2025 11:30:00 AM, [address], [address] , [place], [place], [id number], Progress Notes * VIET PAPPASDOB:1975 (49 yo M)Acc No.[id number]:02/11/2025 Progress Notes Patient: VIET LAWRENCE Provider: Geovanny Gilliland M.D. :1975 A ge:49 Y S ex:Male Date:02/11/2025 Address:[facility] [id number] Pcp:Shaun Watts Subjective: * Chief Complaints: * 1 . 6 mo ck up. 2. Needs colon cancer screening, Tdap, & shingles vaccine. * HPI: C ardiology: The pt is here today for a check up on Hypertension and Hypothyroidism. Pt states he has a sore spot in the right corner of his mouth. Pt states this has been present for 4-5 days and has tried campho pheniquec without much relief. Pt is not fasting. 49 year old male presents with c/o Short of Breath w ith exertion. Denies : Chest Pain. D enies : Dizziness. D enies : Palpitations. * ROS: D ERMATOLOGY: no R delio. n o H marvin. G ASTROENTEROLOGY: no N ausea. n o V omiting. n o D iarrhea.? U ROLOGY: no D ifficulty urinating. n o B lood in urine. * Medical History: A ddison's disease, followed by Endo at , OCD, Depression/anxiety, osteoporosis, Dx: Jul 2014, followed by Endo at , Impaired fasting glucose, Dx: 2017, followed by Endo at , kidney stones, right side, Dx: 2018, Lyme disease 01/2020. * Hospitalization/Major Diagno stic Procedure: A nxiety [facility] ER 08/20/15, [place] [facility] - Vomiting/Dehydration 12/2015, [place] [facility] - abdominal pain, back pain 12/14/18. * Family History: F ather: alive, emphysema. M other: alive. * Social History: C URRENT TOBACCO USE S moking Status: Patient does NOT smoke. 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 Past smoking status: no. * Medications: T [...] 1 tablet orally once a day , Taking predniSONE 5 MG Tablet 1.5 tab(s) orally once a day , Medication List reviewed and reconciled with the patient * Allergies: N .K.D.A. Objective: * Vitals: W t:145.4, Temp:98.0, BP:106/72, HR:78, O2 Sat:99% on RA, Nurse:JAN, Ht: 73, BMI:19.18. * Examination: G eneral Examination: General Appearance: N AD. H EENT: u nremarkable.?Oral cavity: n o lesions, mucosa moist and WNL, no erythema. erythematous lesion at the right angle of the mouth, not pustular. N tre: s upple, no lymphadenopathy. C hest: normal shape and expansion. H eart: R SR. L ungs: c lear to auscultation, bronchial breath sounds. A bdomen: soft and nontender, no organomegaly or masses. N eurologic Exam: I ntact, gait normal. S kin: n ormal, no rash. . P eripheral pulses: normal . B ack: mild dorsal kyphosis. E xtremities: n o leg edema. ? Assessment: * Assessment: 1. A ddison disease - E27.1 (Primary) 2 . O bsessive-compulsive disorder, unspecified type - F42.9 3 . D epression with anxiety - F41.8 4 .?Hypothyroidism, unspecified type - E03.9 5 . B ipolar 2 disorder, major depressive episode - F31.81 6 . P rimary hypertension - I10 7 .?Angular stomatitis - K13.0 8 . M igraine without status migrainosus, not intractable, unspecified migraine type - G43.909 9 . H yponatremia - E87.1 & #160; 1 0. B kiki mass index (BMI) of 19.0 to 19.9 in adult - Z68.1 Plan: * Treatment: 2. P rimary hypertension Refill Losartan Potassium Tablet, 25 MG, 1 tablet, orally, once a day, 90 days, 90 Tablet, Refills 1. 3. A ngular stomatitis Start Clotrimazole-Betamethasone Cream, 1-0.05 %, 1 application, Externally, Twice a day, 30 gm, Refills 0. 4. M igraine without status migrainosus, not intractable, unspecified migraine type Refill Nurtec Tablet Disintegrating, 75 MG, 1 tab(s), orally, daily as needed maximum of 8 tabs in one month, 20, Refills 3. 5. H yponatremia L AB: CMP * Procedure Codes: 3 074F SYST BP LT 130 MM HG, 3078F DIAST BP < 80 MM HG * Follow Up: 3 Months * Images: Billing Information: * Visit Code: 44027 Office Visit, Est Pt., Level 4. * Procedure Codes: 3074F SYST BP LT 130 MM HG. 3078F DIAST BP < 80 MM HG. * Electronic signature of Geovanny Gilliland MD on 07/15/2025 at 03:33 PM EDT Sign off status: Pending * Provider: Geovanny Gilliland M.D. Date: 0 02/11/2025 Generated for Printi ng/Fakayceg/eTransmitting on: 0 07/15/2025 03:33 PM EDT History and Physical Notes * HPI (History of Present Illness) Category Sub-Category Detail Notes Category Not es Cardiology Short of Breath with exertion Chest Pain Palpitations Dizziness Examination Category Sub-Category Detail Notes Category Not es General Examination HEENT: unremarkable Heart: RSR Lungs: clear to auscultatio n, bronchial breath sounds Abdomen: soft and nontender, no organomegaly or masses Extremities: no leg edema General Appearance: NAD Skin: normal, no rash. Neurologic Exam: Intact, gait normal Neck: supple, no lymphaden opathy Oral cavity: no lesions, mucosa m oist and WNL, no erythema. erythematous lesion at the right angle of the mouth, not pustular Peripheral pulses: normal Back: mild dorsal kyphosis Chest: normal shape and exp ansion
--- OUTSIDE RECORDS SUMMARY | 2025-05-13 06:30 | XMS_ITS ---
[facility] Organization [facility] Address [address] [facility] [address] [place] [id number] Care Team Providers Care Roll Or Tape Edge Machine Operator Name Role Phone Shaun Watts Primary Care Provider Geovanny Gilliland Unavailable [phone] Allergies No Known Allergies REASON FOR VISIT 3 month, Needs colon cancer screening & shingles vaccine Medications Medication SIG (Take, Route, Frequency, Duration) Notes Start Date End Date Status predniSONE 5 MG 1.5 tab(s) orally on ce a day Active Losartan Potassium 25 MG 1 tablet orally once a day; Duration: 90 days Not-Takin g ALPRAZolam 0.25 MG 1 tablet orally 3 times a day as needed 02/11/2025 Active Nurtec 75 MG 1 tab(s) orally elle y as needed maximum of 8 tabs in one month 06/28/2022 Active Clotrimazole-Betamethasone 1-0.05 % 1 application Externally Twice a day 02/11/2025 Active busPIRone HCl 5 MG 1 tab(s) orally 2 times a day; Duration: 30 day(s) Active Perphenazine 4 MG 1 tab(s) Orally 2 times a day Active Benztropine Mesylate 0.5 MG 1 tab(s) orally once a day (at bedtime); Duration: 90 days 02/19/2010 Active Fludrocortisone Acetate 0.1 MG 2 tabs orally once a day Active Synthroid 88 MCG 1 tab(s) orally once daily Active Hydrocortisone 2.5 % 1 ray applied topically 2 times a day Active Sertraline HCl 150 MG 1 capsule Orally O nce a day; Duration: 30 day(s) Active Vital Signs Weight 148 lbs 05/13/2025 Blood pressure systolic 120 mm Hg 05/13/20 25 Blood pressure diastolic 80 mm Hg 025 Heart Rate 78 /min 05/13/2025 Height 73 in 05/13/2025 BMI 19.52 kg/m2 05/13/2025 Encounters Encounter Location Date Provider Diagnosis [facility] [address] [facility] [address] [facility] [address] [place] [id number] 05/13/2025 Geovanny Gilliland 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 HE WILL GET LABS TODAY AT [facility]. i REQUESTED COPY. 05/13/2025 Obsessive-compuls tyrel disorder, unspecified type (ICD-10 - F42.9) 05/13/2025 Body mass index (BMI) of 19.0 to 19.9 in adult (ICD-10 - Z68.1) Plan Of Treatment Treatment Notes Assessment Notes Hyponatremia HIS INSURANCE WILL N OT ALLOW BLOODWORK TO BE DRAWN HERE. HE WILL GET LABS TODAY AT [facility]. i REQUESTED COPY. Next Appt Details Follow Up: 4 Weeks, Reason: Provider Name:Geovanny Hilton er, 10/14/2025 11:30:00 AM, [address] [facility] [address] [facility], [address], [place], [id number], Progress Notes * VIET PAPPASDOB:1975 (49 yo M)Acc No.[id number]:05/13/2025 Progress Notes Patient: VIET LAWRENCE Provider: Geovanny Gilliland M.D. :1975 A ge:49 Y S ex:Male Date:05/13/2025 Address:[address], [place], [place] Pcp:Shaun Watts Subjective: * Chief Complaints: * 1 . 3 month. 2. Needs colon cancer screening & shingles vaccine. * HPI: H PI: 49 year old male presents with c/o Patient is here today for?Pt is here today for a 3 month check up. P t sts he was in the hospital last month [facility] for adrenal crisis and hyponatremia (No=[id number]), Records also show EPEC on PCR. Discharged 04/28. Pt sts he was very out of it and does remember anything prior to being in the hospital. Did have nausea and vomiting prior to presentation. Pt sts he was in the ICU for the 3 days. Was told to stop taking his BP medication since his BP has been good. Pt sts he is still not taking it. Appt April 30 with Endocrnologist. Follow-up scheduled. Note doses of Prednisone and Flucortisone.. * ROS: D ERMATOLOGY: no R delio. [...] * Hospitalization/Major Diagno stic Procedure: A nxiety [facility] ER 08/20/15, [facility] - Vomiting/Dehydration 12/2015, [facility] - abdominal pain, back pain 12/14/18. * Family History: F ather: alive, emphysema. M other: alive. * Social History: C URRENT TOBACCO USE S moking Status: Patient does NOT smoke. 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 Past smoking status: no. * Medications: T aking Sertraline HCl 150 MG Capsule 1 capsule Orally Once a day , Taking Hydrocortisone 2.5 % Cream 1 ray applied topically 2 times a day , Taking Synthroid 88 MCG Tablet 1 tab(s) orally once daily , Taking Fludrocortisone Acetate 0.1 MG Tablet 2 tabs orally once a day , Taking Benztropine Mesylate 0.5 MG Tablet 1 tab(s) orally once a day (at bedtime) , Taking Perphenazine 4 MG Tablet 1 tab(s) Orally 2 times a day , Taking busPIRone HCl 5 MG Tablet 1 tab(s) orally 2 times a day , Taking predniSONE 5 MG Tablet 1.5 tab(s) orally once a day , Taking Clotrimazole-Betamethasone 1-0.05 % Cream 1 application Externally Twice a day , Taking Nurtec 75 MG Tablet Disintegrating 1 tab(s) orally daily as needed maximum of 8 tabs in one month , Taking ALPRAZolam 0.25 MG Tablet 1 tablet orally 3 times a day as needed , Not-Taking Losartan Potassium 25 MG Tablet 1 tablet orally once a day , Medication List reviewed and reconciled with the patient * Allergies: N .K.D.A. Objective: * Vitals: W t: 148, Temp: 98.4, BP: 120/80, HR: 78, O2 Sat: 97% on RA, Nurse: montez, Ht: 73, BMI:19.52. * Examination: G eneral Examination: General Appearance: N AD. H EENT: u nremarkable.?Oral cavity: n o lesions, mucosa moist and WNL, no erythema. . N tre: s upple, no lymphadenopathy. C hest: n ormal shape and expansion. H eart: R SR. L ungs: c lear to auscultation, bronchial breath sounds. A bdomen: soft and nontender, no organomegaly or masses. N eurologic Exam: I ntact, gait normal. S kin: n ormal, no rash. . P eripheral pulses: n ormal . B ack: mild dorsal kyphosis. E xtremities: n o leg edema. Assessment: * Assessment: 1. 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 H yponatremia - E87.1 ? 3 . O bsessive-compulsive disorder, unspecified type - F42.9 4 . B kiki mass index (BMI) of 19.0 to 19.9 in adult - Z68.1 Plan: * Treatment: * Procedure Codes: 1 036F TOBACCO NON-USER, G8783 BP SCR PRFRM RCMDD DEFIND SCR INTVL, 3074F SYST BP LT 130 MM HG, 3079F DIAST BP 80-89 MM HG * Follow Up: 4 Weeks * Images: Billing Information: * Visit Code: 54310 Office Visit, Est Pt., Level 3. * Procedure Codes: 1036F TOBACCO NON-USER. G8783 BP SCR PRFRM RCMDD DEFIND SCR INTVL. 3074F SYST BP LT 130 MM HG. 3079F DIAST BP 80-89 MM HG. * Electronic signature of Geovanny Gilliland MD on 07/15/2025 at 03:33 PM EDT Sign off status: Pending * Provider: Geovanny Gilliland M.D. Date: 0 05/13/2025 Generated for Hoi mumtaz/Hang/eTransmitting on: 0 07/15/2025 03:33 PM EDT History and Physical Notes * HPI (History of Present Illness) Category Sub-Category Detail Notes Category Not es HPI Patient is here today for Pt is here today for a 3 month check up. 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 Discharged 04/28. Pt sts he was very out of it and does remember anything prior to being in the hospital. Did have nausea and vomiting prior to presentation. Pt sts he was in the ICU for the 3 days. Was told to stop taking his BP medication since his BP has been good. Pt sts he is still not taking it. Appt April 30 with Endocrnologist. Follow-up scheduled. Note doses of Prednisone and Flucortisone. Examination Category Sub-Category Detail Notes Category Not es General Examination HEENT: unremarkable Heart: RSR Lungs: clear to auscultatio n, bronchial breath sounds Abdomen: soft and nontender, no organomegaly or masses Extremities: no leg edema General Appearance: NAD Skin: normal, no rash. Neurologic Exam: Intact, gait normal Neck: supple, no lymphaden opathy Oral cavity: no lesions, mucosa m oist and WNL, no erythema. Peripheral pulses: normal Back: mild dorsal kyphosis Chest: normal shape and exp ansion
--- OUTSIDE RECORDS SUMMARY | 2025-06-10 07:45 | XMS_ITS ---
Author Organization [facility] Address [address] [facility] 36 [facility] [address] [place] [id number] Care Team Providers Care Technical Supervisor Name Role Phone Shaun Watts Primary Care Provider [phone] Geovanny [place] [phone] Allergies No Known Allergies REASON FOR VISIT 4 weeks Encounters Encounter Location Date Provider Diagnosis [facility] [address] [facility] [address] [facility] [address] [place] [id number] 06/10/2025 Geovanny Gilliland Plan Of Treatment Next Appt Details Provider Name:Geovanny Hilton er, 10/14/2025 11:30:00 AM, [address] [facility] [address] [facility], [address], [place], [place], [id number], Progress Notes * VIET PAPPASDOB:1975 (49 yo M)Acc No.[id number]:06/10/2025 Progress Notes Patient: VIET LAWRENCE Provider: Geovanny Gilliland M.D. :1975 A ge:49 Y S ex:Male Date:06/10/2025 Address:[address], [place], [place] Pcp:Shaun Watts Subjective: * Chief Complaints: * 1 . 4 weeks. * HPI: H PI: 49 year old male presents with c/o Patient is here today for?Pt is here today for a 4 week check up. Pt sts he is doing well and has no new concerns at this time. * ROS: D ERMATOLOGY: no R delio. [...] * Hospitalization/Major Diagno stic Procedure: A nxiety [facility] ER 08/20/15, [facility] - Vomiting/Dehydration 12/2015, [facility] - abdominal pain, back pain 12/14/18. * Family History: F ather: alive, emphysema. M other: alive. * Social History: C URRENT TOBACCO USE S moking Status: Patient does NOT smoke. 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 Past smoking status: no. * Allergies: N .K.D.A. Objective: * Vitals: Assessment: Plan: * Treatment: * Images: Billing Information: * Visit Code: * Procedure Codes: * Electronic signature of Geovanny Gilliland MD on 07/15/2025 at 03:32 PM EDT Sign off status: Pending * Provider: Geovanny Gilliland M.D. Date: 0 06/10/2025 Generated for Safia pandya/Hang/eTransmitting on: 0 07/15/2025 03:32 PM EDT History and Physical Notes * HPI (History of Present Illness) Category Sub-Category Detail Notes Category Not es HPI Patient is here today for Pt is here today for a 4 week check up. Pt sts he is doing well and has no new concerns at this time
--- OUTSIDE RECORDS SUMMARY | 2025-07-15 15:32 | XMS_ITS | Encounter Summary ---
Author Organization Healthcare Address [address] [place] [address] Care Team Providers Care Petroleum Products District Supervisor Name Role Phone Alessio Gilliland MD Primary Care Provider [phone] Encounter Details Date Type Department Care Team (Late st Contact Info) Description 06/13/2025 Orders Only [facility] [address] [place] [address] Courtney Baxter, DO [address] [facility] [address] [place] [address] Social History Tobacco Use Types Packs/Day Years Used Date Smoking Tobacco: Former Cigarettes Q uit: 2000 Smokeless Tobacco: Never Alcohol Use Standard Drinks/Week Comments Never 0 (1 standard drink = 0.6 oz pur e alcohol) Humiliation, Afraid, Rape, and Kick questionnair e Answer Date Recorded Within the last year, have y ou been afraid of your partner or ex-partner? No 04/25/2025 Within the last year, have y ou been humiliated or emotionally abused in other ways by your partner or ex-partner? No Within the last year, have y ou been kicked, hit, slapped, or otherwise physically hurt by your partner or ex-partner? No 04/25/2025 Within the last year, have y ou been raped or forced to have any kind of sexual activity by your partner or ex-partner? No 04/25/2025 AUDIT-C Answer Date Recorded Q1: How often do you have a drink containing alcohol? Never 04/30/2025 Q2: How many drinks containi ng alcohol do you have on a typical day when you are drinking? Patient does not drink Q3: How often do you have si x or more drinks on one occasion? Never 04/30/2025 Hunger Vital Sign Answer Date Recorded Within the past 12 months, y ou worried that your food would run out before you got the money to buy more. Never true 04/25/20 25 Within the past 12 months, t he food you bought just didn't last and you didn't have money to get more. Never true 04/25/2025 PRAPARE - Transportation Answer Date Re corded In the past 12 months, has l ack of transportation kept you from medical appointments or from getting medications? No 04/01 In the past 12 months, has l ack of transportation kept you from meetings, work, or from getting things needed for daily living? No 04/25/2025 Housing Stability Vital Sign Answer Irwin e Recorded In the last 12 months, was t here a time when you were not able to pay the mortgage or rent on time? No 04/25/2025 In the past 12 months, how m any times have you moved where you were living? 1 04/25/2025 At any time in the past 12 m [facility], were you homeless or living in a long-term (including now)? No 04/25/2025 Utilities Answer Date Recorded In the past 12 months has th e electric, gas, oil, or water company threatened to shut off services in your home? No 04/25/2025 Sex and Gender Information Value Date Recorded Sex Assigned at Not on file Legal Sex Male 8:37 PM EDT Gender Identity Not on file Sexual Orientation Not on file documented as of this encounter Plan of Treatment Upcoming Encounters Date Type Department Care Team (Late st Contact Info) Description 09/11/2025 11:40 AM EST Office Visit [facility] [address] [place] [address] Courtney Baxter DO [address] [place] [address] documented as of this encounter Procedures Procedure Name Priority Date/Time Associated Diagnosis Comments BASIC METABOLIC PANEL, PLASMA Routine 06/13/2025 11:00 AM EDT documented in this encounter Results * Basic Metabolic Panel, Plasma (06/13/2025 11:00 AM EDT) Blood Venous blood specimen / Unknown Courtney Baxter DO LAB BLOOD ORDERABLES Final Result documented in this encounter Visit Diagnoses Not on filedocumented in this encounter Additional Health Concerns Infection Onset Date Last Indicated Resolved Time 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
--- OUTSIDE RECORDS SUMMARY | 2025-07-15 15:32 | XMS_ITS | Encounter Summary ---
Author Organization Healthcare Address [address] [place] [address] Care Team Providers Care Motion Picture Photographer Name Role Phone Alessio Gilliland MD Primary Care Provider [phone] Encounter Details Date Type Department Care Team (Late st Contact Info) Description 05/24/2025 Orders Only [facility] [address] [place] [address] Courtney Baxter, DO [address] [facility] [address] [place] [address] Social History Tobacco Use Types Packs/Day Years Used Date Smoking Tobacco: Former Cigarettes Q uit: 2001 Smokeless Tobacco: Never Alcohol Use Standard Drinks/Week [...] any time in the past 12 m [facility], were you homeless or living in a halfway (including now)? No 04/25/2025 Utilities Answer Date [...] Visit [facility] [address] [place] [address] Courtney Baxter DO [address] [place] [address] documented as of this encounter Procedures Procedure Name Priority Date/Time Associated Diagnosis Comments BASIC METABOLIC PANEL, PLASMA Routine 05/24/2025 3:10 PM EDT documented in this encounter Results * Basic Metabolic Panel, Plasma (05/24/2025 3:10 PM EDT) Blood Venous blood specimen / Unknown [...] documented as of this encounter Care Teams Motion Picture Photographer Relationship Specialty Start Date End Date Alessio Gilliland MD [address] [place] [address] PCP - General 04/25/25 documented as of this encounter
--- OUTSIDE RECORDS SUMMARY | 2025-07-15 15:32 | XMS_ITS | Encounter Summary ---
Author Organization Healthcare Address [address] [place] [address] Care Team Providers Care Freight Car Cleaner [employer] Name Role Phone Alessio Gilliland MD Primary Care Provider [phone] Encounter Details Date Type Department Care Team (Late st Contact Info) Description 06/13/2025 Results Follow-Up [facility] [address] [place] [address] Courtney Baxter, DO [address] [facility] [address] [place] [address] Social History Tobacco Use Types [...] any time in the past 12 m [facility], were you homeless or living in a care home (including now)? 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
--- OUTSIDE RECORDS SUMMARY | 2025-07-15 15:32 | XMS_ITS | Encounter Summary ---
Author Organization Healthcare Address [address] [place] [address] Care Team Providers Care Health Policy Manager Name Role Phone Alessio Gilliland MD Primary Care Provider [phone] Encounter Details Date Type Department Care Team ([facility] Contact Info) Description 05/27/2025 Results Follow-Up [facility] [address] [facility], [address] [place] [address] Courtney Baxter, DO [address] [facility] [address] [place] [address] Social History Tobacco Use Types [...] any time in the past 12 m [facility], were you homeless or living in a senior living (including now)? No 04/25/2025 Utilities Answer Date [...] on file documented as of this encounter Miscellaneous Notes * Telephone Encounter - Audra Robin RN - 05/30/2025 9:15 AM EDT Printed and faxed lab orders to [facility] [phone]. Transmission confirmed. * Result Encounter Note - Courtney Baxter DO - 05/27/2025 1:04 PM EDT Please fax lab order for BMP to be completed on 06/08 to [facility]. Patient is aware. Thanks! * Telephone Encounter - Courtney Baxter DO - 05/27/2025 12:49 PM EDT Labs reviewed and sodium and potassium are normal at 141 and 3.8 respectively. Continue current dose of Prednisone 7.5 mg and Fludrocortisone 0.15 mg daily. PCP is planning to increase dose of Zoloftto 150 mg and recommend repeat sodium in 1-2 weeks. Ordered today. He discussed his significant anxiety regarding his health and worry about being able to work. We discussed that with taking Prednisone and Fludrocortisone he is replacing what he is deficient in and is like someone with normal adrenal glands. Reviewed stress dosing indications. Encouraged him to continue to work with Mental Healthprovider as well. documented in this encounter Plan of Treatment Upcoming Encounters Date Type Department Care Team (Late st Contact Info) Description 09/11/2025 11:40 AM EST Office Visit [facility] [address] [place] [address] Courtney Baxter DO [address] [place] [address] Scheduled Orders Name Type Priority Associated Diagnoses Orde r Schedule Basic metabolic panel Lab Routine [place]'s disease (CMS/HCC) Hyponatremia Expected: 06/08/2025 (Approximate), Expires: 11/28/2026 documented as of this encounter Visit Diagnoses Diagnosis [place]'s disease (CMS/HCC)- Primary Glucocorticoid deficiency Hyponatremia Hyposmolality and/or hyponatremia documented in this encounter Additional Health Concerns Infection Onset Date Last Indicated Resolved Time 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
--- OUTSIDE RECORDS SUMMARY | 2025-07-15 15:32 | XMS_ITS | Clinical Summary ---
Author Organization [facility] Address [address] [place] [address] Phone [email or web address] Care Team Providers Care Yoker Name Role Phone Reed Gilliland MD Primary Care Provider [phone] Allergies Active Allergy Reactions Criticality Noted Date Comments Latex Itching,Rash Medium 04/19/2022 02/07/25 Pt states he is not allergic to Latex. Medications fludrocortisone 0.1 MG tablet Take 0.1 mg by mouth 1 (one) time each day. Active levothyroxine (SYNTHROID, LEVOTHROID) 100 MCG tablet Take 100 mcg by mouth 1 (one) time each day. Active benztropine (COGENTIN) 0.5 MG tablet Take 0.5 mg by mouth 2 (two) times a day. Active predniSONE (DELTASONE) 5 MG tablet Take 7.5 mg by mouth 1 (one) time each day. Active ALPRAZolam (XANAX) 0.5 MG tablet Take 0.5 mg by mouth at night if needed for anxiety. Active busPIRone (BUSPAR) 5 MG tablet 2 Active losartan (COZAAR) 25 MG tablet 3 Active Nurtec 75 MG tablet dispersible DISSOLVE ONE TABLET in MOUTH DAILY NEEDED maximum of 8 tablets PER month 3 Active Hydrocortisone Sod Succinate (HYDROCORTISONE SOD SUC, PF, IJ) Inject 100 mg as directed. 3 Active perphenazine 4 MG tablet Take 4 mg by mouth in the morning and 4 mg in the evening. 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 Hypothyroidism 07/29/2014 Other sprain and strain of wrist 11/12/2011 Overview (03/29/2018): Pain in joint, forearm 11/04/2011 Overview (03/29/2018): Health examination of defined subpopulation 03/01 Overview (03/29/2018): Encounters Date Type Department Care Team Description 05/07/2025 3:00 PM EDT Office Visit [facility] [place] [facility] [address] [place] [address] Freya Luciano RN Return to work evaluation (Primary Dx) 05/06/2025 [place] [facility] [place] [address] [facility] [address] [place] [address] Mark Crowley MA from Last 3 Months Family History Medical History Relation Name Comments Emphysema Father Cancer Mother Relation Name Status Comments Father Mother Social History Tobacco Use Types Packs/Day Years Used Date Smoking Tobacco: Former Passive Smoke Exposure: Past Smokeless Tobacco: Never Tobacco Cessation:Counseling Given: Yes Comments:quit 20 years ago smoked for 10 years Alcohol Use Standard Drinks/Week Comments Never 0 (1 standard drink = 0.6 oz pur e alcohol) Intimate Partner Violence Answer Date R ecorded Insults You Not on file 02/10/2021 Threatens You Not on file 02/10/2021 Screams at You Not on file 02/10/2021 Physically Hurt Not on file 02/10/2021 Intimate Partner Violence Score Not on file 02/10/2021 Alcohol Use Answer Date Recorded Alcohol Use Status Never 02/07/2025 Depression Answer Date Recorded PHQ Total Score 2 12/24/2024 Stress Answer Date Recorded Stress in your Life Not on file 09/02/2024 Dealing with Stress 3 09/02/2024 Sex and Gender Information Value Date Recorded Sex Assigned at Not on file Legal Sex Male 7:50 AM CDT Gender Identity Not on file Sexual Orientation Not on file Last Filed Vital Signs Vital Sign Reading Time Taken Comments Blood Pressure 126/81 05/07/2025 3:23 PM EDT Pulse 98 05/07/2025 3:23 PM EDT Temperature 36.2 C (97.2 F) 02/07/2025 5:42 PM EDT Respiratory Rate 18 05/07/2025 3:23 PM EDT Oxygen Saturation 96% 05/07/2025 3:23 PM EDT Inhaled Oxygen Concentration - - Weight 65.3 kg (144 lb) 02/07/2025 5:42 PM EDT Height 185.4 cm (6' 1 ) 02/07/2025 5:42 PM EDT Body Mass Index 19 02/07/2025 5:42 PM EDT Plan of Treatment Health Maintenance Due Date Last Done Comments CT Colonography 1974 Colonoscopy 1974 Colorectal Cancer Screening Combo 1974 DNA Cologuard 1974 Dental Cleaning/Exam 1974 FIT or FOBT Test 1974 HIV Screening 1974 Hepatitis C Screening 1974 Sigmoidoscopy 1974 Hep B Infection Screening - Triple Screen 1992 Hepatitis B Immunization (1 of 3 - 19+ 3-dose series) 1993 Annual Preventive Exam 05/25/2024 05/25/2023, 2018 Zoster Immunization (1 of 2) 2024 Covid-19 Immunization ( - season) 2025 11/14/2021, 05/16/2021, 04/15/2021 Influenza Immunization (#1) 2025 11/0 12/2020, 2019, 07/31/2018, Additional history exists Tetanus Diphtheria and Pertussis Immunization (3 - Td or Tdap) 06/28/2032 06/28/2022, 08/07/2012 Hepatitis A Immunization Aged Out 10/11/2018 No longer eligible based on patient's age to complete this topic HIB Immunization Aged Out No longer e ligible based on patient's age to complete this topic HPV Immunization Aged Out No longer e ligible based on patient's age to complete this topic Pneumococcal: Ped (0 to 5 Yrs) and At-Risk Member (6 to 64 Yrs) Aged Out No longer eligible based on patient's age to complete this topic Polio Immunization Aged Out No longer eligible based on patient's age to complete this topic Insurance OPT OUT NO COPAY NB ANTHEM IN COPAY 5 [id number] [address] [place] [address] Care Teams Yoker Relationship Specialty Start Date End Date Reed Gilliland MD [address] [address] PCP - General Neurology 05/24/22
--- OUTSIDE RECORDS SUMMARY | 2025-07-15 15:33 | XMS_ITS | Encounter Summary ---
Author Organization [facility] Address [address] [place] [address] Care Team Providers Care Cell Cleaner Name Role Phone Shaun Watts MD Primary Care Provider [phone] Alessio Gilliland MD Primary Care Provider [phone] Reason for Visit * Reason Comments Med Refill Encounter Details Date Type Department Care Team (Late Contact Info) Description 04/08/2022 Refill [facility] Endocrinology [address] [place] [address] Nick Morrison, DO [address] [address] Social History Tobacco Use Types Packs/Day Years Used Date Smoking Tobacco: Never Alcohol Use Standard Drinks/Week Comments Yes 0 (1 standard drink = 0.6 oz pur e alcohol) Sex and Gender Information Value Date Recorded Sex Assigned at Not on file Legal Sex Male 8:37 PM EDT Gender Identity Not on file Sexual Orientation Not on file documented as of this encounter Plan of Treatment Upcoming Encounters Date Type Department Care Team (Late Contact Info) Description 09/11/2025 11:40 AM EST [facility] Endocrinology [address] [place] [address] Courtney Baxter, [address] [address] documented as of this encounter Visit Diagnoses Not on filedocumented in this encounter Additional Health Concerns Infection Onset Date Last Indicated Resolved Time Gastrointestinal Rule-Out 04/23/2025 04/24/2025 6:11 PM EDT Enteropathogenic E. coli (EPEC) 04/24/2025 documented as of this encounter Care Teams Cell Cleaner Relationship Specialty Start Date End Date Shaun Watts MD [address] [facility] [address] [place] [address] PCP - General 03/13/21 04/24/25 Alessio Gilliland MD [address] [place] [facility] [address] [place], [place] [address] PCP - General 04/25/25 documented as of this encounter
--- OUTSIDE RECORDS SUMMARY | 2025-07-15 15:33 | XMS_ITS | Encounter Summary ---
Author Organization Healthcare Address [address] [place] [address] Care Team Providers Care Opening Machine Cleaner Name Role Phone Alessio Gilliland MD Primary Care Provider [phone] Encounter Details Date Type Department Care Team (Late st Contact Info) Description 06/20/2025 Telephone [facility] End[facility] [address] [place] [address] Courtney Baxter, DO [address] [facility] [address] [place] [address] Social History Tobacco Use Types [...] any time in the past 12 m [facility], were you homeless or living in a half-way (including now)? No 04/25/2025 Utilities Answer Date Recorded In the past 12 months has th e [employer], gas, oil, or water company threatened to shut off services in your home? No 04/25/2025 Sex and Gender Information Value Date Recorded Sex Assigned at Not on file Legal Sex Male 8:37 PM EDT Gender Identity Not on file Sexual Orientation Not on file documented as of this encounter Miscellaneous Notes * Telephone Encounter - Jeannie Stark, PharmD - 06/20/2025 4:23 PM EDT We will dispense Solu-Cortef 100 mg acto-vial with a dose of 100 mg IM, thanks! * Telephone Encounter - Courtney Baxter DO - 06/20/2025 4:01 PM EDT Needs to be 100 mg dose documented in this encounter Plan of Treatment Upcoming Encounters Date Type Department Care Team (Late st Contact Info) Description 09/11/2025 11:40 AM EST Office Visit [facility] Endocrinology [address] [place] [phone] Courtney Baxter DO [address] [facility] [address] [place] [phone] documented as of this encounter Visit Diagnoses [...] documented as of this encounter Care Teams Opening Machine Cleaner Relationship Specialty Start Date End Date Alessio Gilliland MD [address] [place] [address] PCP - General 04/25/25 documented as of this encounter
--- OUTSIDE RECORDS SUMMARY | 2025-07-15 15:33 | XMS_ITS | Encounter Summary ---
Author Organization Healthcare Address [address] [place] [address] Care Team Providers Care Pipe Installer Name Role Phone Alessio Gilliland MD Primary Care Provider [phone] Reason for Visit * Reason Comments Med Refill Encounter Details Date Type Department Care Team (Late st Contact Info) Description 07/15/2025 Refill [facility] [address] [place] [address] Courtney Baxter, DO [address] [facility] [address] [place] [address] Hypothyroidism, unspecified type Social History Tobacco Use Types Packs/Day Years [...] any time in the past 12 m [facility], were you homeless or living in a alf (including now)? No 04/25/2025 Utilities Answer Date Recorded In the past 12 months has th e [employer], gas, oil, or water company threatened to shut off services in your home? No 04/25/2025 Sex and Gender Information Value Date Recorded Sex Assigned at Not on file Legal Sex Male 8:37 PM EDT Gender Identity Not on file Sexual Orientation Not on file documented as of this encounter Miscellaneous Notes * Telephone Encounter - Jane Conley PharmD - 07/15/2025 1:50 PM EDT 1 medication(s) has been approved per protocol. documented in this encounter Plan of Treatment Upcoming Encounters Date Type Department Care Team (Re garcia Contact Info) Description 09/11/2025 11:40 AM EST Office Visit [facility] Endocrinology [address] [place] [phone] Courtney Baxter DO [address] [place] [phone] documented as of this encounter Visit Diagnoses Diagnosis Hypothyroidism, unspecified type documented in this encounter Additional Health Concerns Infection Onset Date Last Indicated Resolved Time Enteropathogenic E. coli (EPEC) 04/24/2025 Assessment Noted Time A fall risk assessment has been complete d for the patient 05/19/2022 11:25 AM EDT A Body Mass Index follow-up plan has been documented for the patient 04/30/2025 3:14 PM EDT documented as of this encounter Care Teams Pipe Installer Relationship Specialty Start Date End Date Alessio Gilliland MD [address] [place] [address] PCP - General 04/25/25 documented as of this encounter
--- OUTSIDE RECORDS SUMMARY | 2025-07-15 15:33 | XMS_ITS | Patient Health Record ---
[facility] [address] [facility] [address] [place] [address] [place] [id number] Care Team Providers Care Java Android Developer Name Role Phone KirbyvilleShaun campbell Primary Care Provider Geovanny Gilliland Unavailable [phone] MikieAshish doana Unavailable [phone] Allergies No Known Allergies Results Component Value Reference Range Notes TEN-Upper Respiratory PCR Reviewed date:01/08/2025 04:49:19 PM Interpretation:not performed, quantity no sufficient Performing Lab: Notes/Report: not performed, quantity no sufficient H-Iron Reviewed date:01/03/2025 01:53:26 PM Interpretation: Performing Lab: Notes/Report: FE 91 49-181 ug/dL H-Ferritin Reviewed date:01/03/2025 01:53:26 PM Interpretation: Performing Lab: Notes/Report: KP 175 17.9-464 ng/ml H-Retic count Reviewed date:01/03/2025 01:53:26 PM Interpretation: Performing Lab: Notes/Report: SOBEIDA 1.4 0.9-3.2 % H-VITAMIN B12 Reviewed date:01/03/2025 01:53:26 PM Interpretation: Performing Lab: Notes/Report: VITB12 > 1000 239-931 pg/mL H-Folate Reviewed date:01/03/2025 01:53:26 PM Interpretation: Performing Lab: Notes/Report: FOL > 20.00 Normal Adult: 2.76->20 ng/mL Folate Deficent: 1.04-2.79ng/mL H-CMP Reviewed date:01/03/2025 01:53:26 PM Interpretation: Performing [...] AGRATIO 2.5 1.1-1.8 ALP 67 38-126 U/L H-VITAMIN D Reviewed date:01/03/2025 01:53:26 PM Interpretation: Performing Lab: Notes/Report: TVITD 41.7 30-100 ng/mL Deficient <20 ng/mL Insufficient 20-30 ng/mL Sufficient 30-100 ng/mL Potential Toxicity >100 ng/mL H-CBC Reviewed date:01/03/2025 01:53:26 PM Interpretation: Performing [...] 0.1 0.0-0.4 K/mm3 BA# 0.1 0-0.2 K/mm3 H-CMP Reviewed date:09/18/2024 04:27:25 PM Interpretation: Performing Lab: Notes/Report: H-CMP Reviewed date:09/20/2024 01:00:55 PM Interpretation:satisfactory Performing Lab: Notes/Report: NA 135 136-145 mmol/L K 3.9 3.5-5.1 mmoL/L CL 100 98-107 mmol/L CO2 28 22.0-30.0 mmol/L GAP 10.9 5-15 mEq/L BUN 11 9-20 mg/dl CREATT 0.70 0.66-1.25 mg/dl GFRAA 144 >60 ML/MIN EGFR 119 >60 ml/min GLU 99 74-100 mg/dl CA 9.4 8.4-10.2 mg/dl BILIT 0.4 0.2-1.3 mg/dl AST 27 17-59 U/L ALT 23 12-78 U/L TP 7.3 6.3-8.2 g/dl ALB 4.7 3.5-5.0 g/dl GLOB 2.6 1.3-3.2 g/dL AGRATIO 1.8 1.1-1.8 ALP 55 38-126 U/L H-CMP Reviewed date:05/31/2025 09:33:05 AM Interpretation:a/g 2, bili 0.1, gluc 108, Na 135 Performing Lab: Notes/Report: NA 135 136-145 mmol/L K 4.2 3.5-5.1 mmoL/L CL 104 98-107 mmol/L CO2 27 22.0-30.0 mmol/L GAP 8.2 5-15 mEq/L BUN 15 9-20 mg/dl CREATT 0.80 0.66-1.25 mg/dl GFRAA 124 >60 ML/MIN EGFR 102 >60 ml/min GLU 108 74-100 mg/dl CA 9.3 8.4-10.2 mg/dl BILIT 0.1 0.2-1.3 mg/dl AST 22 17-59 U/L ALT 22 12-78 U/L TP 6.6 6.3-8.2 g/dl ALB 4.4 3.5-5.0 g/dl GLOB 2.2 1.3-3.2 g/dL AGRATIO 2.0 1.1-1.8 ALP 73 38-126 U/L P-Comprehensive Metabolic Pa ion (CMP) Reviewed date:08/14/2024 04:21:16 PM Interpretation:K+ 5.7 Performing Lab: Notes/Report: Test performed by [facility], [address] , [address], [place] [address] Amari Woodward MD, Grain Elevator Agent CLIA: [id number] Sodium 137 135-145 mmol/L Potassium 5.7 3.5-5.3 [...] 0.2 <0.2-1.2 mg/dL A/G Ratio 2.4 1.1-2.5 Covid test (in house) Reviewed date:12/13/2024 05:03:43 PM Interpretation: Performing Lab: Notes/Report: Result: Pos H-CBC Reviewed date:12/26/2024 08:44:59 AM Interpretation:rbc 4.14, hgb 13, hct 39.1, mcv 94.4, mch 31.4, mpv 11 Performing Lab: Notes/Report: WBC 7.6 4.8-10.8 K/mm3 RBC 4.14 4.60-6.20 M/mm3 HGB 13.0 14.1-18.0 g/dL HCT 39.1 42.0-52.0 % MCV 94.4 80-94 fl MCH 31.4 27.0-31.2 pg MCHC 33.2 31.8-35.4 g/dL RDW 12.8 11.5-17.5 % PLT 387 142-424 K/mm3 MPV 11.0 7.4-10.4 fl NE% 62.1 37.0-80.0 % LY% 22.9 10-50 % MO% 9.2 1.7-9.3 % EO% 2.5 0.1-12.0 % BA% 0.8 0.1-2.0 % NE# 4.7 1.8-7.8 K/mm3 LY# 1.7 0.7-4.5 K/mm3 MO# 0.7 0.1-1.0 K/mm3 EO# 0.2 0.0-0.4 K/mm3 BA# 0.1 0-0.2 K/mm3 H-CMP Reviewed date:12/26/2024 08:45:14 AM Interpretation:Na 135, Cr 0.6, bili <0.1, a/g 2.2 Performing Lab: Notes/Report: NA 135 136-145 mmol/L K 4.1 3.5-5.1 mmoL/L CL 101 98-107 mmol/L CO2 30 22.0-30.0 mmol/L GAP 8.1 5-15 mEq/L BUN 11 9-20 mg/dl CREATT 0.60 0.66-1.25 mg/dl GFRAA 173 >60 ML/MIN EGFR 143 >60 ml/min GLU 91 74-100 mg/dl CA 9.4 8.4-10.2 mg/dl BILIT < 0.1 0.2-1.3 mg/dl AST 22 17-59 U/L ALT 24 12-78 U/L TP 6.3 6.3-8.2 g/dl ALB 4.3 3.5-5.0 g/dl GLOB 2.0 1.3-3.2 g/dL AGRATIO 2.2 1.1-1.8 ALP 60 38-126 U/L Reason For Referral Reason peyronie's disease Diagnosis 1 Peyronie's disease ( N48.6) Referral Organization [facility] Referring Provider First Name Geovanny Mcbride Referring Provider Last Name Talat Referring Provider Speciality Family Pra ctice Referred Provider Specialty Urology Referral Priority Routine Medications Medication SIG (Take, Route, Frequency, Duration) Notes Start Date End Date Status Fludrocortisone Acetate 0.1 MG 1 and 1/2 orally once a day Active Benztropine Mesylate 0.5 MG 1 tab(s) orally once a day (at bedtime); Duration: 90 days 02/19/2010 Active Perphenazine 4 MG 1 tab(s) Orally 2 times a day Active busPIRone HCl 5 MG 1 tab(s) orally 2 times a day; Duration: 30 day(s) Active predniSONE 5 MG 1.5 tab(s) orally on ce a day Active Clotrimazole-Betamethasone 1-0.05 % 1 application Externally Twice a day 02/11/2025 Active Nurtec 75 MG 1 tab(s) orally elle y as needed maximum of 8 tabs in one month 06/28/2022 Active ALPRAZolam 0.25 MG 1 tablet orally 3 times a day as needed 02/11/2025 Active Sertraline HCl 150 MG 1 capsule Orally O nce a day; Duration: 30 day(s) Active Losartan Potassium 25 MG 1 tablet orally once a day; Duration: 90 days Not-Takin g Hydrocortisone 2.5 % 1 ray applied topically 2 times a day Active Synthroid 88 MCG 1 tab(s) orally once daily Active Immunizations Vaccine Route Administration Date Status Comme nts [...] xFluzone Intradermal (18-64yrs)-trivalent ID Intradermal 07/26/2013 Administered Problems Problem Type SNOMED Code ICD Code Onset Dates Problem Status W/U Status Risk Notes Problem Mixed anxiety and depressive disorder (399572491) Depression with anxiety (F41.8) Active confirmed Problem Depressed bipolar I disorder in remission (83581286) Bipolar disorder, in partial remission, most recent episode depressed (F31.75) Active confirmed Problem Headache disorder (516554535) Other headache syndrome (G44.89) Active confirmed Problem Insomnia (288609432) Other insomnia (G47.09) Active confirmed Problem Contusion of right hand (98251978944932750 ) Contusion of right hand, initial encounter (S60.221A) Active confirmed Problem Other fracture o f fifth metacarpal bone, right hand, subsequent encounter for fracture with routine healing (S62.396D) Active confirmed Problem Obsessive compulsive disorder (859873734) Obsessive compulsive disorder (F42) Active confirmed Problem Chronic fatigue syndrome (09012695) Chronic fatigue (R53.82) Active confirmed Problem Panic disorder (935289981) Panic attacks (F41.0) Active confirmed Problem Migraine (40746782) Migraine without status migrainosus, not intractable, unspecified migraine type (G43.909) Active confirmed Problem Anemia (224274841) Anemia, unspecified type (D64.9) Active confirmed Problem Kidney stone (30492114) Kidney stone on right side (N20.0) Active confirmed Problem Hyperlipidaemia (02872154) Hyperlipidemia, unspecified hyperlipidemia type (E78.5) Active confirmed Problem Hypothyroidism (30683570) Hypothyroidism, unspecified type (E03.9) Active confirmed Problem Lyme disease (28189739) Lyme disease (A69.20) Active confirmed Problem Atopic dermatitis (43326666) Atopic dermatitis, unspecified type (L20.9) Active confirmed Problem 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 Problem Obsessive-compulsi ve disorder (302531493) Obsessive-compuls tyrel disorder, unspecified type (F42.9) Active confirmed Problem Peyronie's disease (2962840) Peyronie's disease (N48.6) Active confirmed Problem Manic disorder, single episode (179013835) Manic episode (F30.9) Active confirmed Problem Bipolar II disorder (79859666) Bipolar 2 disorder, major depressive episode (F31.81) Active confirmed Problem Paranoia (949476637) Paranoia (F22) Active confirmed Problem Primary hypertension (00250490) Primary hypertension (I10) Active confirmed Problem Closed fracture of multiple sites of metacarpus (34227220) Closed displaced fracture of other part of fifth metacarpal bone of right hand, initial encounter (S62.396A) Active confirmed Vital Signs Heart Rate 68 /min 07/15/2025 Blood pressure diastolic 80 mm Hg 07/15/2025 Height 73 in 07/15/2025 Blood pressure systolic 120 mm Hg 07/15/2025 Weight 146.2 lbs 07/15/2025 BMI 19.29 kg/m2 07/15/2025 Encounters Encounter Location Date Provider Diagnosis [facility] [address] [facility] [address] [place], [place] [id number] 08/09/2024 Geovanny Gilliland Encounter for immunization Z23 ; Obsessive-compulsive disorder, unspecified type F42.9 ; Panic attacks F41.0 ; Primary hypertension I10 and Migraine without status migrainosus, not intractable, unspecified migraine type G43.909 [facility] [address] [facility] [address] [place], [place] [id number] 12/12/2024 Candi Schmitt COVID-19 U07.1 [facility] [address] [place], [place] [id number] 12/20/2024 Candi Schmitt COVID-19 U07.1 [facility] [address] [place], [place] [id number] 01/02/2025 Candi Schmitt COVID-19 U07.1 ; Anemia, unspecified type D64.9 ; Renal insufficiency N28.9 and Elevated liver enzymes R74.8 [facility] [address] [place], [place] [id number] 02/11/2025 Geovanny Gilliland Le Flore disease E27. 1 ; Obsessive-compulsive disorder, unspecified type F42.9 ; Depression with anxiety F41.8 ; Hypothyroidism, unspecified type E03.9 ; Bipolar 2 disorder, major depressive episode F31.81 ; Primary hypertension I10 ; Angular stomatitis K13.0 ; Migraine without status migrainosus, not intractable, unspecified migraine type G43.909 ; Hyponatremia E87.1 and Body mass index (BMI) of 19.0 to 19.9 in adult Z68.1 [facility] [address] [place], [place] [id number] 05/13/2025 Geovanny Gilliland Le Flore's disease E2 7.1 ; Hyponatremia E87.1 ; Obsessive-compulsive disorder, unspecified type F42.9 and Body mass index (BMI) of 19.0 to 19.9 in adult Z68.1 [facility] [address] [place], [place] [id number] 07/15/2025 Geovanny Gilliland Le Flore disease E27. 1 ; Bipolar disorder, in partial remission, most recent episode depressed F31.75 ; Primary hypertension I10 ; Obsessive compulsive disorder F42 ; Peyronie's disease N48.6 and Hyponatremia E87.1 [facility] [address] [place], [place] [id number] 08/14/2024 Geovanny Gilliland Primary hypertension I10 [facility] [address] [place], [place] [id number] 12/11/2024 Candi Schmitt [facility] [address] [place], [place] [id number] 12/17/2024 Candi Schmitt [facility] [address] [place], [place] [id number] 12/26/2024 Candi Schmitt [facility] [address] [place], [place] [id number] 01/03/2025 Candi Schmitt [facility] [address] [place], [place] [id number] 04/29/2025 Geovanny Reed Gilliland [facility] [address] [place], [place] [id number] 05/28/2025 Shaunroxane Watts [facility] [address] [place], [place] [id number] 06/17/2025 Shaun Watts Assessments Encounter Date Diagnosis (ICD Code) Assessment Notes Treatment Notes Treatment Clinical Notes Section Notes 08/09/2024 Encounter for immunization (ICD-10 - Z23) 08/09/2024 Obsessive-compulsi ve disorder, unspecified type (ICD-10 - F42.9) 12/12/2024 COVID-19 (ICD-10 - U07.1) Fluids, rest, supportive measures for fever and symptoms relief, discussed covid vitamins and isolation period. Patient took paxlovid the last time he got covid and did well with it. 12/20/2024 COVID-19 (ICD-10 - U07.1) Patient is much better. He may return to work on 12/22/24. 01/02/2025 Anemia, unspecified type (ICD-10 - D64.9) 01/02/2025 COVID-19 (ICD-10 - U07.1) His immune system is likely down from recently having covid. Will check labs and a respiratory panel. 02/11/2025 Le Flore disease (ICD-10 - E27.1) 02/11/2025 Obsessive-compulsi ve disorder, unspecified type (ICD-10 - F42.9) 05/13/2025 Hyponatremia (ICD-10 - E87.1) HIS INSURANCE WILL NOT ALLOW BLOODWORK TO BE DRAWN HERE. HE WILL GET LABS TODAY AT [facility]. i REQUESTED COPY. 05/13/2025 Juan Jose's disease (ICD-10 - E27.1) 07/15/2025 Bipolar disorder, in partial remission, most recent episode depressed (ICD-10 - F31.75) 07/15/2025 Le Flore disease (ICD-10 - E27.1) 07/15/2025 Primary hypertension (ICD-10 - I10) 05/13/2025 Obsessive-compulsi ve disorder, unspecified type (ICD-10 - F42.9) 02/11/2025 Depression with anxiety (ICD-10 - F41.8) 08/14/2024 Primary hypertension (ICD-10 - I10) 01/02/2025 Renal insufficiency (ICD-10 - N28.9) 08/09/2024 Panic attacks (ICD-10 - F41.0) 08/09/2024 Primary hypertension (ICD-10 - I10) 01/02/2025 Elevated liver enzymes (ICD-10 - R74.8) 05/13/2025 Body mass index (BMI) of 19.0 to 19.9 in adult (ICD-10 - Z68.1) 02/11/2025 Hypothyroidism, unspecified type (ICD-10 - E03.9) 07/15/2025 Obsessive compulsive disorder (ICD-10 - F42) 07/15/2025 Peyronie's disease (ICD-10 - N48.6) 02/11/2025 Bipolar 2 disorder, major depressive episode (ICD-10 - F31.81) 08/09/2024 Migraine without status migrainosus, not intractable, unspecified migraine type (ICD-10 - G43.909) 02/11/2025 Primary hypertension (ICD-10 - I10) 07/15/2025 Hyponatremia (ICD-10 - E87.1) 02/11/2025 Angular stomatitis (ICD-10 - K13.0) 02/11/2025 Migraine without status migrainosus, not intractable, unspecified migraine type (ICD-10 - G43.909) 02/11/2025 Hyponatremia (ICD-10 - E87.1) 02/11/2025 Body mass index (BMI) of 19.0 to 19.9 in adult (ICD-10 - Z68.1) Plan Of Treatment Pending Test Test Name Order Date CMP 02/11/2025 Cologuard 04/10/2024 BASIC METABOLIC 07/15/2025 Next Appt Details Provider Name:Geovanny Hilton er, 10/14/2025 11:30:00 AM, [address], [place], [id number], Insurance Providers Payer Name Payer Address Payer Phone Subscriber Number Group Number Insured Name Patient Relationship to Insured Coverage Start Date Coverage End Date NINI PRASAD [employer] [facility] [address] [place] [address] [id number] VIET PAPPAS Self - patient is the insured Medical (General) History Medical History History ICD Code Le Flore's disease, 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
--- OUTSIDE RECORDS SUMMARY | 2025-07-15 15:33 | XMS_ITS | Encounter Summary ---
Author Organization Healthcare Address [address] [place] [address] Care Team Providers Care Casting Room Operator Name Role Phone Alessio Gilliland MD Primary Care Provider [phone] Reason for Visit * Reason Comments Med Refill Encounter Details Date Type Department Care Team (Late st Contact Info) Description 06/24/2025 Refill [facility] [address] [place] [address] Courtney Baxter, DO [address] [facility] [address] [place] [address] [place]'s disease (CMS/HCC) Social History Tobacco Use Types Packs/Day Years [...] any time in the past 12 m [facility], were you homeless or living in a skilled nursing (including now)? No 04/25/2025 Utilities Answer Date Recorded In the past 12 months has th e [employer], gas, oil, or water company threatened to shut off services in your home? No 04/25/2025 Sex and Gender Information Value Date Recorded Sex Assigned at Not on file Legal Sex Male 8:37 PM EDT Gender Identity Not on file Sexual Orientation Not on file documented as of this encounter Miscellaneous Notes * Telephone Encounter - Jane Conley PharmD - 06/24/2025 10:06 AM EDT 1 medication(s) has been approved per protocol. documented in this encounter Plan of Treatment Upcoming Encounters Date Type Department Care Team (Late st Contact Info) Description 09/11/2025 11:40 AM EST Office Visit [facility] [address] [place] [phone] Courtney Baxter DO [address] [facility] [address] [place] [id number] documented as of this encounter Visit Diagnoses Diagnosis Mackin[place]'s disease (CMS/HCC) Glucocorticoid deficiency documented in this encounter Additional Health Concerns Infection Onset Date Last Indicated Resolved Time Enteropathogenic E. coli (EPEC) 04/24/2025 Assessment Noted Time A fall risk assessment has been complete d for the patient 05/19/2022 11:25 AM EDT A Body Mass Index follow-up plan has been documented for the patient 04/30/2025 3:14 PM EDT documented as of this encounter Care Teams Casting Room Operator Relationship Specialty Start Date End Date Alessio Gilliland MD [address] [place] [id number] PCP - General 04/25/25 documented as of this encounter
--- OUTSIDE RECORDS SUMMARY | 2025-07-15 15:33 | XMS_ITS | Clinical Summary ---
Author Organization [facility] Address [address] [place] [address] Care Team Providers Care Thread Tool Grinder Set Up Operator Name Role Phone Alessio Gilliland MD Primary Care Provider [phone] Allergies Active Allergy Reactions Criticality Noted Date Comments Latex Itching,Rash Medium 04/19/2022 Medications benztropine (Cogentin) 0.5 MG tablet Take 1 tablet by mouth nightly. Active busPIRone (Buspar) 5 MG tablet Take 1 tablet by mouth 2 times a day. 022 Active Rimegepant Sulfate (Nurtec) 75 MG tablet dispersible DISSOLVE ONE TABLET in MOUTH DAILY NEEDED maximum of 8 tablets PER month 023 Active sertraline (Zoloft) 100 MG tablet Take 1.5 tablets by mouth daily. 024 Active perphenazine 2 MG tablet Take 1 tablet by mouth 2 times a day. 025 Active Syringe 23G X 1 3 ML miscIndication s:Sioux's disease (CMS/HCC) 1 each as needed (To inject Hydrocortisone in setting of adrenal crisis). 50 each 025 Active fludrocortison e (Florinef) 0.1 MG tabletIndicati ons:Sioux's disease (CMS/HCC) Take 2 tablets by mouth daily. 60 tablet 5 025 2025 Active hydrocortisone sod succ, PF, (Solu-CORTEF Act-O-Vial) 50 mg/mL injectionIndic ations:Juan Jose 's disease (CMS/HCC) Inject 2 mL into the muscle as needed (only if cannot tolerate oral steroids for adrenal crisis). 2 each 025 Active predniSONE (Deltasone) 5 MG tabletIndicati ons:Sioux's disease (CMS/HCC) TAKE ONE-HALF (1/2) TABLET IN THE MORNING AND TAKE 1 TABLET IN THE EVENING (INCREASE DOSE WHEN SICK) 200 tablet 025 Active levothyroxine (Synthroid, Levoxyl) 100 MCG tabletIndicati ons:Hypothyroi dism, unspecified type TAKE 1 TABLET ONCE DAILY 90 tablet 025 Active predniSONE (Deltasone) 5 MG tabletIndicati ons:Juan Jose's disease (CMS/HCC) Take 1/2 tablet by mouth in morning and take 1 tablet in the evening. Increase dose when sick. 200 tablet 3 024 2024 Discontinued levothyroxine (Synthroid, Levoxyl) 100 MCG tabletIndicati ons:Hypothyroi dism, unspecified type Take 1 tablet (100 mcg) by mouth 1 (one) time each day. 90 tablet 3 024 2024 Discontinued hydrocortisone sod succ, PF, (Solu-CORTEF Act-O-Vial) 50 mg/mL injectionIndic ations:Sioux 's disease (CMS/HCC) Inject 2 mL into the muscle as needed (only if cannot tolerate oral steroids for adrenal crisis). 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 Hypothyroidism 07/29/2014 Other sprain and strain of wrist 11/12/2011 Overview (05/19/2022): Pain in joint, forearm 11/04/2011 Overview (05/19/2022): Encounters Date Type Department Care Team Description [facility] [address] [place] [address] Courtney Baxter, DO Hypothyroidism, unspecified type 06/24/2025 [facility] [address] [place] [address] Courtney Baxter, DO Juan Jose's disease ([facility]/HCC) 06/20/2025 Telephone [facility] End[facility] [address] [place] [phone] Courtney Baxter, DO 06/19/2025 [facility] [address] [place] [address] Courtney Baxter, Sioux's disease ([facility]) 06/13/2025 Results Follow-Up [facility] Endocrinology [address] [phone] Courtney Baxter, DO 06/13/2025 Orders Only [facility] End[facility] [address] [phone] Courtney Baxter, DO 05/27/2025 Results Follow-Up [facility] [address], [address] [place] [address] Courtney Baxter, DO 05/24/2025 Orders Only [facility] Endocrinology [address] [place] [address] Courtney Baxter, DO 05/16/2025 Telephone [facility] Endocrinology [address] [place] [address] Britni Bae RN 05/15/2025 Telephone [facility] Endocrinology [address] [place] [address] Courtney Baxter, DO 05/14/2025 Results Follow-Up [facility] Endocrinology [address] [place] [address] Courtney Baxter, DO 05/14/2025 Orders Only [facility] [address] [place] [address] Courtney Baxter, DO 05/14/2025 Results Follow-Up [facility] [address] [place] [address] Courtney Baxter, DO 05/13/2025 Telephone [facility] [address], [address] [place] [address] Courtney Baxter, DO HCN - Patient Message 05/13/2025 Orders Only [facility] [address] [place] [address] Courtney Baxter, DO Juan Jose's disease (CMS/HCC) (Primary Dx) 05/08/2025 Orders Only [facility] [address] [place] [phone] Courtney Baxter, DO 05/07/2025 Orders Only [facility] [address] [place] [phone] Courtney Baxter, DO 05/06/2025 Results Follow-Up [facility] [address], [address] [place] [address] Courtney Baxter, DO 05/06/2025 Orders Only [facility] [address] [place] [address] Courtney Baxter, DO 05/02/2025 Results Follow-Up [facility] [address] [place] [address] Courtney Baxter, DO 05/02/2025 Orders Only [facility] [address] [place] [phone] Courtney Baxter, DO 05/02/2025 Telephone [facility] [address] [place] [address] Britni Bae RN 04/30/2025 11:40 AM EDT Office Visit [facility] Endocrinology [address] [place] [address] Courtney Baxter DO Sioux's disease (CMS/HCC) (Primary Dx); Hypothyroidism, unspecified type; Prediabetes; Hyponatremia 04/30/2025 Travel 04/23/2025 6:22 PM EDT - 04/28/2025 4:38 PM EDT Hospital Encounter [facility] [address] [place] [address] Momo Mesa MD Varadarajalu, MD Jessi Padgett Sreeparna, MD Crawford, MD Tamera Pedraza Haris, MD Naidu, Lorin Amaro MD Hyponatremia (Primary Dx); Hypothyroidism, unspecified type; Juan Jose's disease (CMS/HCC); Adrenal insufficiency (CMS/HCC); Anxiety; Depression, unspecified depression type; Obsessive-compulsive disorder with good or fair insight Discharge Disposition: Home or Self Care 04/23/2025 Travel 04/23/2025 Orders Only External Location [address] [place] [phone] Roberto Forman, 04/23/2025 Orders Only External Location [address] [place] [phone] Roberto Forman, 04/23/2025 Orders Only External Location [address] [place] [phone] Roberto Forman DO from Last 3 Months Immunizations Immunization Administration Dates Next Due Hep A, Adult 10/11/2018 Influenza, injectable, quadrivalent 07/31,07/28/2022,10/14/2020,2018,07/31/2018,07/25/2017,06/30/2015 Influenza, recombinant, quad rivalent, injectable, preservative free 09/02/2021 Influenza, seasonal, injectable 07/22/2014,08/02,08/03/2010 Influenza, seasonal, intrade rmal, preservative free 07/12/2016,07/26/2013,08/07/2012 [employer] COVID-19 Vac cine (Purple Cap) 12+ 11/14/2021 Tdap 06/28/2022,08/07/2012 Family History Medical History Relation Name Comments Emphysema Father Conversions - Other Mother Prediabe sharon Relation Name Status Comments Father Mother Social History Tobacco Use Types Packs/Day Years Used Date Smoking Tobacco: Former Cigarettes Q uit: 2000 Smokeless Tobacco: Never Tobacco Cessation:Counseling Given: Not Answered Alcohol Use Standard Drinks/Week Comments Never 0 [...] any time in the past 12 m [facility], were you homeless or living in a jail (including now)? No 04/25/2025 Utilities Answer Date [...] Sign Reading Time Taken Comments Blood Pressure 119/85 04/30/2025 11:58 AM EDT Pulse 74 04/30/2025 11:58 AM EDT Temperature 36.6 C (97.9 F) 04/28/2025 12:15 PM EDT Respiratory Rate 17 04/28/2025 8:41 AM EDT Oxygen Saturation 97% 04/28/2025 12: 15 PM EDT Inhaled Oxygen Concentration - - Weight 65.2 kg (143 lb 11.8 oz) 025 11:58 AM EDT Height 185.4 cm (6' 1 ) 04/30/2025 11:5 8 AM EDT Body Mass Index 18.96 04/30/2025 11:58 AM EDT Plan of Treatment Upcoming Encounters Date Type Department Care Team (Late st Contact Info) Description 09/11/2025 11:40 AM EST Office Visit [facility] [address] [place] [address] Courtney Baxter DO [address] [place] [address] Health Maintenance Due Date Last Done Comments [facility]-Depression Screening 1974 [facility]-HIV Screening 1974 [facility]-/Child/Adol SDOH Screenings 1974 [facility]-Hepatitis B Vaccines (1 of 3 - 19+ 3-dose series) 1993 [facility]-Zoster Vaccines (1 of 2) 1993 CT Colonography 2019 Colonoscopy 2019 FIT-DNA 2019 FIT 2019 FOBT 2019 Sigmoidoscopy 2019 [facility]-Colorectal Cancer Screening 2019 [facility]-Pneumococcal Vaccine: 50+ Years (1 of 1 - PCV) 2024 [id number] Vaccine (4 - 2024- season) 2025 11/14/2021, 05/16/2021, 04/15/2021 [facility]-Influenza Vaccine (#1) 07/01/202508/09, 07/28/2022, 09/02/2021, Additional history exists [facility]- SDOH Screenings 10/25/2025 [facility]-Adult SDOH Screenings 10/25/2025 04/25/2025 [facility]-Diabetes: Hemoglobin A1C 04/23/2026, 07/04/2024, 05/17/2023, Additional history exists [facility]-DTaP,Tdap,and Td Vaccines (3 - Td or Tdap) 06/28/2032 06/28/2022, 08/07/2012 [facility]-Hepatitis A Vaccines Aged Out 10/11/2018 No longer eligible based on patient's age to complete this topic [facility]-Hepatitis C Screening Completed 04/23/2025 HPV Vaccines Aged Out No longer eligi ble based on patient's age to complete this topic [facility]-HIB Vaccines Aged Out No longer e ligible based on patient's age to complete this topic [facility]-IPV Vaccines Aged Out No longer e ligible based on patient's age to complete this topic [facility]-Rotavirus Vaccines Aged Out No lo nger eligible based on patient's age to complete this topic Procedures Procedure Name Priority Date/Time Associated Diagnosis Comments BASIC METABOLIC PANEL, PLASMA Routine 06/13/2025 11:00 AM EDT BASIC METABOLIC PANEL, PLASMA Routine 05/24/2025 3:10 PM EDT BASIC METABOLIC PANEL, PLASMA Routine 05/14/2025 9:19 AM EDT OSMOLALITY, URINE Routine 05/09/2025 9:0 6 AM EDT PLASMA RENIN ACTIVITY, LC/MS/MS (SO) Routine 05/09/2025 9:06 AM EDT BASIC METABOLIC PANEL, PLASMA Routine 05/07/2025 9:20 AM EDT BASIC METABOLIC PANEL, PLASMA Routine 05/06/2025 1:46 PM EDT OSMOLALITY, SERUM Routine 05/06/2025 8:0 8 AM EDT BASIC METABOLIC PANEL, PLASMA Routine 05/02/2025 2:01 PM EDT SODIUM, PLASMA Timed 04/28/2025 8:48 AM EDT SODIUM, PLASMA Timed 04/27/2025 6:34 PM EDT CBC W/O DIFFERENTIAL Routine 04/27/2025 2:45 AM EDT IONIZED CALCIUM, WHOLE BLOOD Routine 04/27/2025 2:45 AM EDT PHOSPHORUS, PLASMA Routine 04/27/2025 2: 45 AM EDT MAGNESIUM, PLASMA Routine 04/27/2025 2:4 5 AM EDT BASIC METABOLIC PANEL, PLASMA Routine 04/27/2025 2:45 AM EDT SODIUM, PLASMA Routine 04/26/2025 2:12 PM EDT SODIUM, PLASMA Timed 04/26/2025 8:22 AM EDT SODIUM, PLASMA Timed 04/26/2025 4:27 AM EDT COMPREHENSIVE METABOLIC PANEL, PLASMA Routine 04/26/2025 12:23 AM EDT CBC W/O DIFFERENTIAL Routine 04/26/2025 12:23 AM EDT IONIZED CALCIUM, WHOLE BLOOD Routine 04/26/2025 12:23 AM EDT PHOSPHORUS, PLASMA Routine 04/26/2025 12 :23 AM EDT MAGNESIUM, PLASMA Routine 04/26/2025 12: 23 AM EDT SODIUM, PLASMA Timed 04/26/2025 12:23 AM EDT SODIUM, PLASMA Routine 04/25/2025 6:54 PM EDT SODIUM, PLASMA Routine 04/25/2025 2:18 PM EDT POCT GLUCOSE METER UNSOLICITED RESULTS Routine 04/25/2025 11:03 AM EDT SODIUM, PLASMA Timed 04/25/2025 10:16 AM EDT SODIUM, PLASMA Timed 04/25/2025 8:30 AM EDT CREATININE, RANDOM URINE Routine 04/25/2025 8:29 AM EDT CREATININE, PLASMA Add-On 04/25/2025 6: 30 AM EDT SODIUM, PLASMA Timed 04/25/2025 6:30 AM EDT POCT GLUCOSE METER UNSOLICITED RESULTS Routine 04/25/2025 5:46 AM EDT SODIUM, PLASMA Timed 04/25/2025 4:36 AM EDT POCT GLUCOSE METER UNSOLICITED RESULTS Routine 04/25/2025 1:59 AM EDT CBC W/O DIFFERENTIAL Routine 04/25/2025 1:53 AM EDT IONIZED CALCIUM, WHOLE BLOOD Routine 04/25/2025 1:53 AM EDT PHOSPHORUS, PLASMA Routine 04/25/2025 1: 53 AM EDT MAGNESIUM, PLASMA Routine 04/25/2025 1:5 3 AM EDT BASIC METABOLIC PANEL, PLASMA Routine 04/25/2025 1:53 AM EDT SODIUM, PLASMA Timed 04/25/2025 1:53 AM EDT SODIUM, PLASMA Timed 04/25/2025 12:09 AM EDT SODIUM, PLASMA Timed 04/24/2025 9:54 PM EDT SODIUM, PLASMA Timed 04/24/2025 8:09 PM EDT SODIUM, PLASMA Timed 04/24/2025 5:51 PM EDT ECG ADULT STAT 04/24/2025 5:35 PM EDT SODIUM, PLASMA Timed 04/24/2025 4:31 PM EDT SODIUM, PLASMA Timed 04/24/2025 2:01 PM EDT COMPREHENSIVE GI PANEL BY PCR Routine 04/24/2025 12:44 PM EDT SODIUM, PLASMA STAT 04/24/2025 12:42 PM EDT SODIUM, PLASMA Timed 04/24/2025 11:47 AM EDT POCT GLUCOSE METER UNSOLICITED RESULTS Routine 04/24/2025 11:28 AM EDT SODIUM, PLASMA Timed 04/24/2025 9:48 AM EDT SODIUM, PLASMA Timed 04/24/2025 7:54 AM EDT [place] [facility], E/M 30-74 MINUTES Routine 04/24/2025 6:32 AM EDT Hyponatremia Hypothyroidism, unspecified type Sioux's disease (CMS/HCC) Adrenal insufficiency (CMS/HCC) Anxiety Depression, unspecified depression type POCT GLUCOSE METER UNSOLICITED RESULTS Routine 04/24/2025 5:45 AM EDT SODIUM, PLASMA Timed 04/24/2025 5:43 AM EDT IONIZED CALCIUM, WHOLE BLOOD Routine 04/24/2025 2:12 AM EDT PHOSPHORUS, PLASMA Routine 04/24/2025 2: 12 AM EDT MAGNESIUM, PLASMA Routine 04/24/2025 2:1 2 AM EDT BASIC METABOLIC PANEL, PLASMA Routine 04/24/2025 2:12 AM EDT SODIUM, PLASMA Timed 04/24/2025 2:12 AM EDT POCT GLUCOSE METER UNSOLICITED RESULTS Routine 04/23/2025 10:50 PM EDT CBC W/O DIFFERENTIAL Routine 04/23/2025 10:18 PM EDT ACUTE HEPATITIS PANEL Routine 04/23/2025 9:44 PM EDT FOLATE, SERUM Routine 04/23/2025 9:44 PM EDT VITAMIN B12, SERUM Routine 04/23/2025 9: 44 PM EDT AMMONIA, PLASMA Routine 04/23/2025 9:44 PM EDT TROPONIN T, HIGH SENSITIVITY, 2 HOUR, PLASMA Timed 04/23/2025 9:44 PM EDT ETHYL ALCOHOL PLASMA Routine 04/23/2025 9:44 PM EDT SODIUM, PLASMA Timed 04/23/2025 9:44 PM EDT IONIZED CALCIUM, SERUM Routine 04/23/2025 9:44 PM EDT OSMOLALITY, URINE Add-On 04/23/2025 9:2 4 PM EDT URINE BADILLO PANEL Routine 04/23/2025 9:24 PM EDT URINALYSIS WITH REFLEX MICROSCOPIC Routine 04/23/2025 9:24 PM EDT SODIUM, URINE, RANDOM Routine 04/23/2025 9:24 PM EDT URINALYSIS WITH REFLEX MICROSCOPIC AND CULTURE Routine 04/23/2025 9:24 PM EDT COMPREHENSIVE URINE DRUG SCREENING,QUALITATIVE ASSAY, >= 27 DRUG CLASSES Routine 04/23/2025 9:24 PM EDT STREPTOCOCCUS PNEUMONIAE AND LEGIONELLA URINARY ANTIGEN Routine 04/23/2025 9:24 PM EDT MULTI DRUG RESISTANCE TEST Routine 04/23/2025 9:19 PM EDT LAVONNE AURIS SURVEILLANCE BY PCR Routine 04/23/2025 9:19 PM EDT [place] [facility], E/M 30-74 MINUTES Routine 04/23/2025 9:10 PM EDT Hyponatremia Hypothyroidism, unspecified type Juan Jose's disease (CMS/HCC) Adrenal insufficiency (CMS/HCC) BLOOD CULTURE (AEROBIC/ANAEROBIC SET) Routine 04/23/2025 8:30 PM EDT POCT GLUCOSE METER UNSOLICITED RESULTS Routine 04/23/2025 8:21 PM EDT HEPATIC FUNCTION PANEL Add-On 04/23/2025 8:10 PM EDT SODIUM, PLASMA Timed 04/23/2025 8:10 PM EDT CORTISOL Routine 04/23/2025 8:10 PM EDT TROPONIN T, HIGH SENSITIVITY, 0 HOUR, PLASMA, REFLEX TO 2 HOUR STAT 04/23/2025 8:10 PM EDT PHOSPHORUS, PLASMA Routine 04/23/2025 8: 10 PM EDT MAGNESIUM, PLASMA Routine 04/23/2025 8:1 0 PM EDT BASIC METABOLIC PANEL, PLASMA Routine 04/23/2025 8:10 PM EDT ECG ADULT Routine 04/23/2025 8:07 PM EDT OSMOLALITY, SERUM Add-On 04/23/2025 6:3 6 PM EDT PROCALCITONIN, PLASMA Add-On 04/23/2025 6:36 PM EDT N-TERMINAL PROBNP, PLASMA Add-On 04/23/2025 6:36 PM EDT HEMOGLOBIN A1C Add-On 04/23/2025 6:36 PM EDT FREE T4, PLASMA STAT 04/23/2025 6:36 PM EDT TSH STAT 04/23/2025 6:36 PM EDT PHOSPHORUS, PLASMA STAT 04/23/2025 6: 36 PM EDT MAGNESIUM, PLASMA STAT 04/23/2025 6:3 6 PM EDT BLOOD GAS PANEL, VENOUS STAT 04/23/2025 6:36 PM EDT CBC W/O DIFFERENTIAL STAT 04/23/2025 6:36 PM EDT BASIC METABOLIC PANEL, PLASMA STAT 04/23/2025 6:36 PM EDT [place] [facility], E/M 30-74 MINUTES Routine 04/23/2025 6:[address] OUTSIDE IMAGES 04/23/2025 3:[address] OUTSIDE IMAGES 04/23/2025 3:[address] OUTSIDE IMAGES 04/23/2025 3:3 6 PM EDT from Last 3 Months Results * Basic Metabolic Panel, Plasma (06/13/2025 11:00 AM EDT) Only the most recent of11 resultswithin the time period is included. Blood Venous blood specimen / Unknown [employer] Courtney Baxter [employer] LAB BLOOD ORDERABLES Final Result * Plasma Renin Activity (LC/MS/MS) (05/09/2025 9:06 AM EDT) Blood Venous blood specimen / Unknown [employer] Baxter DO LAB BLOOD ORDERABLES Final Result * Osmolality, Urine (05/09/2025 9:06 AM EDT) Only the most recent of2 resultswithin the time period is included. Urine Urine specimen obtained by clean catch procedure / Unknown [employer] Lopes [employer] LAB URINE ORDERABLES Final Result * Osmolality, Serum (05/06/2025 8:08 AM EDT) Only the most recent of2 resultswithin the time period is included. Blood Venous blood specimen / Unknown [employer] Lopes Baxter DO LAB BLOOD ORDERABLES Final Result * (ABNORMAL) Sodium (04/28/2025 8:48 AM EDT) Only the most recent of27 resultswithin the time period is included. Sodium, Plasma 131(L) 136 - 145 mmol/L 04/28/2025 9:18 AM EDT [facility] Blood Venous blood specimen / Unknown Venipuncture / Unknown 04/28/2025 8:48 AM EDT 04/28/2025 8:55 AM EDT Kameron Philip MD LAB BLOOD ORDERABLES Final Resul t Performing Organization Address City/[facility]/ZIP Co de Phone Number [facility] [address] [place] [address] * Ionized calcium, whole blood (04/27/2025 2:45 AM EDT) Only the most recent of4 resultswithin the time period is included. Ionized Calcium, Whole Blood 4.8 4.6 - 5.1 mg/dL LAB HEMATOLOGY METHOD 04/27/2025 2:56 AM EDT [facility] Blood Venous blood specimen / Unknown Venipuncture / Unknown 04/27/2025 2:45 AM EDT 04/27/2025 2:50 AM EDT Pau Powers APRN, ALBERT LAB BLOOD ORDERABLES Final Result Performing Organization Address City/[facility] Co de Phone Number [facility] [address] [place] [address] * CBC W/O Differential (04/27/2025 2:45 AM EDT) Only the most recent of5 resultswithin the time period is included. WBC Count 7.62 3.70 - 10.30 10*3/uL LAB HEMATOLOGY METHOD 04/27/2025 2:56 AM EDT [facility] RBC Count 4.83 4.60 - 6.10 10*6/uL LAB HEMATOLOGY METHOD 04/27/2025 2:56 AM EDT [facility] HGB 15.0 13.7 - 17.5 g/dL LAB HEMATOLOGY METHOD 04/27/2025 2:56 AM EDT [facility] HCT 42.6 40.0 - 51.0 % LAB HEMATOLOGY METHOD 04/27/2025 2:56 AM EDT [facility] Platelet Count 315 155 - 369 10*3/uL LAB HEMATOLOGY METHOD 04/27/2025 2:56 AM EDT [facility] MCV 88 79 - 98 fL LAB HEMATOLOGY METHOD 04/27/2025 2:56 AM EDT [facility] MCH 31.1 26.0 - 32.0 pg LAB HEMATOLOGY METHOD 04/27/2025 2:56 AM EDT [facility] MCHC 35.2 30.7 - 35.5 g/dL LAB HEMATOLOGY METHOD 04/27/2025 2:56 AM EDT [facility] RDW 11.9 11.5 - 14.5 % LAB HEMATOLOGY METHOD 04/27/2025 2:56 AM EDT [facility] MPV 10.3 8.8 - 12.5 fL LAB HEMATOLOGY METHOD 04/27/2025 2:56 AM EDT [facility] nRBC 0.0 <=0.0 per 100 WBCs LAB HEMATOLOGY METHOD 04/27/2025 2:56 AM EDT [facility] Blood Venous blood specimen / Unknown Venipuncture / Unknown 04/27/2025 2:45 AM EDT 04/27/2025 2:51 AM EDT Pau Powers APRN, ALBERT LAB BLOOD ORDERABLES Final Result Performing Organization Address City/[facility]/ZIP Co de Phone Number [facility] [address] [place] [address] * Phosphorus, Plasma (04/27/2025 2:45 AM EDT) Only the most recent of6 resultswithin the time period is included. Phosphorus, Plasma 4.2 2.5 - 4.5 mg/dL 04/27/2025 3:25 AM EDT [facility] Blood Venous blood specimen / Unknown Venipuncture / Unknown 04/27/2025 2:45 AM EDT 04/27/2025 2:50 AM EDT Pau Powers APRN, DNP LAB BLOOD ORDERABLES Final Result [facility] [address] [place] [address] * Magnesium, Plasma (04/27/2025 2:45 AM EDT) Only the most recent of6 resultswithin the time period is included. Magnesium, Plasma 2.2 1.9 - 2.4 mg/dL 04/27/2025 3:25 AM EDT [facility] Blood Venous blood specimen / Unknown Venipuncture / Unknown 04/27/2025 2:45 AM EDT 04/27/2025 2:50 AM EDT Pau Powers APRN, DNP LAB BLOOD ORDERABLES Final Result [facility] [address] [place] [address] * (ABNORMAL) Comprehensive Metabolic Panel, Plasma (04/26/2025 12:23 AM EDT) Pathologist [facility] Glucose, Plasma 108(H) 74 - 99 mg/dL 04/26/2025 1:02 AM EDT [facility] BUN, Plasma 9 7 - 21 mg/dL 04/26/2025 1:02 AM EDT [facility] Creatinine, Plasma 0.59(L) 0.70 - 1.20 mg/dL 04/26/2025 1:02 AM EDT [facility] BUN/Creatinine Ratio 15 04/26/2025 1:02 AM EDT [facility] Sodium, Plasma 134(L) 136 - 145 mmol/L 04/26/2025 1:02 AM EDT [facility] Potassium, Plasma 4.3 3.6 - 4.9 mmol/L 04/26/2025 1:02 AM EDT [facility] Chloride, Plasma 100 97 - 107 mmol/L 04/26/2025 1:02 AM EDT [facility] CO2, Plasma 22 22 - 29 mmol/L 04/26/2025 1:02 AM EDT [facility] Anion Gap 12 6 - 16 mmol/L 04/26/2025 1:02 AM EDT [facility] Total Calcium, Plasma 9.7 8.9 - 10.2 mg/dL 04/26/2025 1:02 AM EDT [facility] Total Protein 7.3 6.3 - 7.9 g/dL 04/26/2025 1:02 AM EDT [facility] Albumin, Plasma 4.6 3.5 - 5.2 g/dL 04/26/2025 1:02 AM EDT [facility] AST, Plasma 21 10 - 50 U/L 04/26/2025 1:02 AM EDT [facility] ALT, Plasma 27 10 - 50 U/L 04/26/2025 1:02 AM EDT [facility] Alkaline Phosphatase, Plasma 60 40 - 115 U/L 04/26/2025 1:02 AM EDT [facility] Total Bilirubin, Plasma 0.3 0.2 - 1.1 mg/dL 04/26/2025 1:02 AM EDT [facility] eGFRcr 118.2 mL/min/1.7 3m*2 04/26/2025 1:02 AM EDT [facility] Comment:Reported eGFRcr in m L/min/1.73m2 is based the CKD-EPI 2020 equation that does not use a race coefficient. Blood Venous blood specimen / Unknown Venipuncture / Unknown 04/26/2025 12:23 AM EDT 04/26/2025 12:31 AM EDT Pau Powers APRN, DNP LAB BLOOD ORDERABLES Final Result [facility] [address] [place] [address] * (ABNORMAL) POCT glucose meter (04/25/2025 11:03 AM EDT) Only the most recent of7 resultswithin the time period is included. POCT Glucose 124(H) 74 - 99 mg/dL 04/25/2025 11:04 AM EDT [facility] Comment:Accuracy of a glucos e result obtained from a capillary whole blood specimen relies upon adequate, non-compromised capillary blood flow. If the capillary glucose result is not consistent with the patient's clinical signs and symptoms, glucose testing should be repeated with either an arterial or venous sample on the glucometer or sent to the main labortory for testing. Comment 04/25/2025 11:04 AM EDT [facility] [employer] Operator ID Ary Solo 11:04 AM EDT [facility] Device ID [id number] 04/25/2025 11:04 AM EDT [facility] Specimen Type POC Capillary 04/25/2025 11:04 AM EDT [facility] Blood Capillary blood specimen / Unknown 04/25/2025 11:03 AM EDT 04/25/2025 11:04 AM EDT Result [facility] Cortney Bowen MD LAB POINT OF CARE TE ST DOCKED DEVICE UNSOLICITED RESULTS Final Result Performing Organization Address City/[facility] de Phone Number [facility] [address] [place] [address] * Creatinine, urine, random (04/25/2025 8:29 AM EDT) Creatinine, Urine 12 mg/dL 04/25/2025 9:08 AM EDT [facility] Urine Urine specimen obtained by clean catch procedure / Unknown Non-blood Collection / Unknown 04/25/2025 8:29 AM EDT 04/25/2025 8:44 AM EDT Result [facility] Pau Powers APRN, DNP LAB URINE ORDERABLES Final Result Performing Organization Address [facility] Phone Number [facility] [address] [place] [address] * (ABNORMAL) Creatinine, plasma (04/25/2025 6:30 AM EDT) Creatinine, Plasma 0.53(L) 0.70 - 1.20 mg/dL 04/25/2025 7:33 AM EDT [facility] eGFRcr 122.1 mL/min/1.7 3m*2 04/25/2025 7:33 AM EDT [facility] Comment:Reported eGFRcr in m L/min/1.73m2 is based the CKD-EPI 2020 equation that does not use a race coefficient. Blood Venous blood specimen / Unknown Venipuncture / Unknown 04/25/2025 6:30 AM EDT 04/25/2025 6:33 AM EDT Pau Powers APRN, DNP LAB BLOOD ORDERABLES Final Result [facility] [address] [place] [address] * ECG Adult (04/24/2025 5:35 PM EDT) Only the most recent of2 resultswithin the time period is included. EKG DIAGNOSIS CLASS Abnormal MUSE ECG Ventricular Rate 78 BPM MUSE ECG Atrial Rate 78 BPM MUSE ECG [place] Interval 186 ms MUSE ECG QRSD Interval 82 ms MUSE ECG QT Interval 360 ms MUSE ECG QTC Interval 410 ms MUSE ECG P [place] 77 degrees MUSE ECG R [place] 68 degrees MUSE ECG T Wave [place] 72 degrees MUSE ECG Diagnosis Normal sinus rhythm MUSE ECG Diagnosis Poor R-wave progression ; consider septal infarct, lead placement, or normal variant MUSE ECG Diagnosis Abnormal ECG MUSE ECG Diagnosis MUSE ECG Diagnosis Confirmed by Maikel Smith ([id number]) on 04/25/2025 10:18:46 AM MUSE ECG 04/24/2025 5:35 PM EDT 04/25/2025 10:18 AM EDT Pau Gio SOARES, DNP ECG ORDERABLES Final Resu lt MUSE ECG * (ABNORMAL) Comprehensive GI Panel by PCR (04/24/2025 12:44 PM EDT) Pathologist [facility] Campylobacter PCR Result Not Detected Not Detected 04/24/2025 6:11 PM EDT [facility] Plesiomonas shigelloides PCR Result Not Detected Not Detected 04/24/2025 6:11 PM EDT [facility] Salmonella PCR Result Not Detected Not Detected 04/24/2025 6:11 PM EDT [facility] Vibrio species PCR Result Not Detected Not Detected 04/24/2025 6:11 PM EDT [facility] Vibrio cholerae PCR Result Not Detected Not Detected 04/24/2025 6:11 PM EDT [facility] Yersinia enterocolitica PCR Result Not Detected Not Detected 04/24/2025 6:11 PM EDT [facility] Enteroaggregative E. coli (EAEC) PCR Result Not Detected Not Detected 04/24/2025 6:11 PM EDT [facility] Enteropathogenic E. coli (EPEC) PCR Result Detected(A) Not Detected 04/24/2025 6:11 PM EDT [facility] Enterotoxigenic E. coli (ETEC) lt/st PCR Result Not Detected Not Detected 04/24/2025 6:11 PM EDT [facility] Shiga-like Toxin-Producing E.coli (STEC) stx1/stx2 PCR Resu Not Detected Not Detected 04/24/2025 6:11 PM EDT [facility] E coli 0157 PCR Result Not Detected Not Detected 04/24/2025 6:11 PM EDT [facility] Shigella/Enteroinvas tyrel E. coli (EIEC) PCR Result Not Detected Not Detected 04/24/2025 6:11 PM EDT [facility] Cryptosporidium PCR Result Not Detected Not Detected 04/24/2025 6:11 PM EDT [facility] Cyclospora cayetanensis PCR Result Not Detected Not Detected 04/24/2025 6:11 PM EDT [facility] Entamoeba histolytica PCR Result Not Detected Not Detected 04/24/2025 6:11 PM EDT [facility] Giardia duodenalis (aka Giardia lamblia) PCR Result Not Detected Not Detected 04/24/2025 6:11 PM EDT [facility] Adenovirus F 40/41 PCR Result Not Detected Not Detected 04/24/2025 6:11 PM EDT [facility] Astrovirus PCR Result Not Detected Not Detected 04/24/2025 6:11 PM EDT [facility] Norovirus GI/GII PCR Result Not Detected Not Detected 04/24/2025 6:11 PM EDT [facility] Rotavirus A PCR Result Not Detected Not Detected 04/24/2025 6:11 PM EDT [facility] Sapovirus PCR Result Not Detected Not Detected 04/24/2025 6:11 PM EDT [facility] Stool Rectum structure / Unknown Non-blood Collection / Unknown 04/24/2025 12:44 PM EDT 04/24/2025 12:49 PM EDT [facility] - 04/24/2025 6:11 PM EDT This specimen was tested for the following analytes: Campylobacter species, Plesiomonas shigelloides, Salmonella species, Vibrio species, Vibrio cholerae, Yersinia enterolitica, Enteroaggregative E. coli (EAEC), Enteropathogenic E. Coli (EPEC), Enterotoxigenic E. coli (ETEC), Shiga-like toxin-producing E. coli (STEC), Shigella/Enteroinvasive E. coli (EIEC), Cryptosporidium, Cyclospora cayetanensis, Entamoeba histolytica, Giardia lamblia, Adenovirus f40/41, Astrovirus, Norovirus GI/GII, Rotavirus A, and Sapovirus. Note: Clostridium difficile toxin a/b will no longer be resulted using this platform. Please order the Clostridium difficile by PCR assay if clinically indicated. Toni Lee APRN LAB MICROBIOLOGY - GENER AL ORDERABLES Final Result [facility] [address] [place] [address] * [place] CRITICAL CARE, E/M 30-74 MINUTES (04/24/2025 6:32 AM EDT) Narrative Cortney Bowen MD - 04/24/2025 6:32 AM EDT Cortney Bowen MD 04/24/2025 6:04 PM Critical Care Performed by: Pau Powers APRN, DNP Authorized by: Pau Powers APRN, DNP Critical care provider statement: Critical care time (minutes): 30 Critical care time was exclusive of: Separately billable procedures and treating other patients and teaching time Critical care was time spent personally by me on the following activities: Development of treatment plan with patient or surrogate, evaluation of patient's response to treatment, examination of patient, obtaining history from patient or surrogate, ordering and performing treatments and interventions, ordering and review of laboratory studies, ordering and review of radiographic studies and review of old charts I assumed subsequent critical care for this patient from a provider in my division, on the same day: no Comments: This patient is critically ill with severe hyponatremia. Thus far, I have spent the above referenced minutes, devoted solely to this patient managing life/organ supporting interventions that required physical assessment. This includes time spent reviewing and adjusting IV fluid due to severe hypernatremia and all other medications, discussion of patient with consultants and other care providers as well as updating patient. This does not include time spent performing separately billed procedures. Time is not concurrent with that of other providers. Pau Powers APRN, DNP IN CLINIC/BEDSIDE ORDERABL ES Final Result * Troponin T, High Sensitivity, 2 Hour, Plasma (04/23/2025 9:44 PM EDT) Troponin T, High Sensitivity, 2 Hour <6 <19 ng/L 04/23/2025 10:40 PM EDT [facility] Troponin Delta Interpretation Not Calculated 04/23/2025 10:40 PM EDT [facility] Comment:Specimen not collect ed within acceptable timeframe. Delta will not be calculated. Blood Venous blood specimen / Unknown Venipuncture / Unknown 04/23/2025 9:44 PM EDT 04/23/2025 10:16 PM EDT Result [facility] Betina Hall APRN LAB BLOOD ORDERABLES Fi nal Result Performing Organization Address City/[facility]/ZIP Co de Phone Number [facility] [address] [place] [address] * Ionized calcium, serum (04/23/2025 9:44 PM EDT) Pathologist [facility] Ionized Calcium, Serum 4.7 4.6 - 5.3 mg/dL LAB HEMATOLOGY METHOD 04/23/2025 10:33 PM EDT [facility] Blood Venous blood specimen / Unknown Venipuncture / Unknown 04/23/2025 9:44 PM EDT 04/23/2025 10:16 PM EDT Betina Hall APRN LAB BLOOD ORDERABLES Fi nal Result Performing Organization Address City/[facility]/ZIP Co de Phone Number [facility] [address] [place] [address] * Ethyl Alcohol Plasma (04/23/2025 9:44 PM EDT) Ethanol Plasma <10 <10 mg/dL 04/23/2025 10:41 PM EDT [facility] Blood Venous blood specimen / Unknown Venipuncture / Unknown 04/23/2025 9:44 PM EDT 04/23/2025 10:16 PM EDT Narrative [facility] - 04/23/2025 10:41 PM EDT Enzymatic Assay: Performed on Charly Javed. us Toin B Lee MICRO COMPUTER SPECIALIST LAB BLOOD ORDERABLES Fin al Result Performing Organization Address City/[facility]/ZIP Co de Phone Number [facility] [address] [place] [address] * Acute Hepatitis Panel (04/23/2025 9:44 PM EDT) Pathologist [facility] Hepatitis B Surf Antigen Negative Negative 04/24/2025 1:03 AM EDT [facility] Hepatitis C Antibody Negative Negative 04/24/2025 1:03 AM EDT [facility] Hepatitis A Antibody IgM Negative Negative 04/24/2025 1:03 AM EDT [facility] Hepatitis B Core Antibody IgM Negative Negative 04/24/2025 1:03 AM EDT [facility] Blood Venous blood specimen / Unknown Venipuncture / Unknown 04/23/2025 9:44 PM EDT 04/23/2025 10:16 PM EDT us Toni B Lee MICRO COMPUTER SPECIALIST LAB BLOOD ORDERABLES Fin al Result Performing Organization Address City/[facility] Co de Phone Number [facility] [address] [place] [address] * Folate (04/23/2025 9:44 PM EDT) Pathologist [facility] Folate, Serum >20.0 >4.6 ng/mL 04/24/2025 12:12 AM EDT [facility] Blood Venous blood specimen / Unknown Venipuncture / Unknown 04/23/2025 9:44 PM EDT 04/23/2025 10:16 PM EDT us Toni B Lee MICRO COMPUTER SPECIALIST LAB BLOOD ORDERABLES Fin al Result Performing Organization Address City/[facility]/ZIP Co de Phone Number [facility] [address] [place] [address] * (ABNORMAL) Vitamin B12 (04/23/2025 9:44 PM EDT) Vitamin B12, Serum 1,665(H) 210 - 1,033 pg/mL 04/24/2025 12:12 AM EDT [facility] Blood Venous blood specimen / Unknown Venipuncture / Unknown 04/23/2025 9:44 PM EDT 04/23/2025 10:16 PM EDT [employer] LAB BLOOD ORDERABLES Fin al Result [facility] [address] [place] [address] * (ABNORMAL) Ammonia, Plasma (04/23/2025 9:44 PM EDT) Pathologist [facility] Ammonia 10(L) 11 - 51 umol/L 04/23/2025 10:46 PM EDT [facility] Blood Venous blood specimen / Unknown Venipuncture / Unknown 04/23/2025 9:44 PM EDT 04/23/2025 10:16 PM EDT [employer] LAB BLOOD ORDERABLES Fin al Result [facility] [address] [place] [address] * Streptococcus pneumoniae and Legionella Urinary Antigen (04/23/2025 9:24 PM EDT) Pathologist [facility] Legionella pneumophila serogroup 1 Antigen Result (Urine) Negative Negative 04/24/2025 7:28 AM EDT [facility] Streptococcus pneumoniae Antigen Result (Urine) Negative Negative 04/24/2025 7:28 AM EDT [facility] Urine Urine specimen obtained by clean catch procedure / Unknown Non-blood Collection / Unknown 04/23/2025 9:24 PM EDT 04/23/2025 10:17 PM EDT [employer] LAB MICROBIOLOGY - GENER AL ORDERABLES Final Result [facility] [address] [place] [address] * Urine [place] Panel (04/23/2025 9:24 PM EDT) Extra Reflex urine culture not indicated 04/24/2025 7:02 AM EDT [facility] Comment: Previously prelim verified as Specimen evaluation in progress on 04/24/2025 at 0005 EDT. Previously prelim verified as Specimen evaluation in progress on 04/24/2025 at 0104 EDT. Previously prelim verified as Specimen evaluation in progress on 04/24/2025 at 0202 EDT. Previously prelim verified as Specimen evaluation in progress on 04/24/2025 at 0302 EDT. Previously prelim verified as Specimen evaluation in progress on 04/24/2025 at 0403 EDT. Previously prelim verified as Specimen evaluation in progress on 04/24/2025 at 0501 EDT. Previously prelim verified as Specimen evaluation in progress on 04/24/2025 at 0602 EDT. Urine Urine specimen obtained by clean catch procedure / Unknown Non-blood Collection / Unknown 04/23/2025 9:24 PM EDT 04/23/2025 10:17 PM EDT us Toni B [employer] LAB URINE ORDERABLES Fin al Result Performing Organization Address [facility] Co de Phone Number [facility] [address] [place] [address] * Sodium, urine, random (04/23/2025 9:24 PM EDT) Sodium, Urine 30 mmol/L 04/23/2025 10:31 PM EDT [facility] Urine Urine specimen obtained by clean catch procedure / Unknown Non-blood Collection / Unknown 04/23/2025 9:24 PM EDT 04/23/2025 10:17 PM EDT us Toni B [employer] LAB URINE ORDERABLES Fin al Result Performing Organization Address [facility] Co de Phone Number [facility] [address] [place] [address] * Comprehensive Urine Drug Screening, Qualitative Assay, >= 27 Drug Classes (04/23/2025 9:24 PM EDT) Acetaminophen Negative Negative 04/25/2025 12:18 PM EDT [facility] Alprazolam Negative Negative 04/25/2025 12:18 PM EDT [facility] Amantadine Negative Negative 04/25/2025 12:18 PM EDT [facility] Amitriptyline Negative Negative 04/25/2025 12:18 PM EDT [facility] Amphetamine Negative Negative 04/25/2025 12:18 PM EDT [facility] Atenolol Negative Negative 04/25/2025 12:18 PM EDT [facility] Benzoylecgonine Negative Negative 12:18 PM EDT [facility] Bisoprolol Negative Negative 04/25/2025 12:18 PM EDT [facility] Bupropion Negative Negative 04/25/2025 12:18 PM EDT [facility] Butalbital Negative Negative 04/25/2025 12:18 PM EDT [facility] Carbamazepine Negative Negative 04/25/2025 12:18 PM EDT [facility] Carisoprodol Negative Negative 04/25/2025 12:18 PM EDT [facility] Chlorpheniramine Negative Negative 04/25/20 12:18 PM EDT [facility] Citalopram Negative Negative 04/25/2025 12:18 PM EDT [facility] Clindamycin Negative Negative 04/25/2025 12:18 PM EDT [facility] Clonidine Negative Negative 04/25/2025 12:18 PM EDT [facility] Clopidogrel / Ticlopidine Negative Negative 04/25/2025 12:18 PM EDT [facility] Cocaethylene Negative Negative 04/25/2025 12:18 PM EDT [facility] Cocaine Negative Negative 04/25/2025 12:18 PM EDT [facility] Codeine Negative Negative 04/25/2025 12:18 PM EDT [facility] Cyclobenzaprine Negative Negative 12:18 PM EDT [facility] Desvenlafaxine Negative Negative 04/25/2025 12:18 PM EDT [facility] Dextromethorphan Negative Negative 04/25/20 12:18 PM EDT [facility] Diazepam Negative Negative 04/25/2025 12:18 PM EDT [facility] Diltiazem Negative Negative 04/25/2025 12:18 PM EDT [facility] Diphenhydramine Negative Negative 12:18 PM EDT [facility] Doxepine Negative Negative 04/25/2025 12:18 PM EDT [facility] Doxylamine Negative Negative 04/25/2025 12:18 PM EDT [facility] EDDP-Methadone metabolite Negative Negative 04/25/2025 12:18 PM EDT [facility] Fentanyl Negative Negative 04/25/2025 12:18 PM EDT [facility] Fluconazole Negative Negative 04/25/2025 12:18 PM EDT [facility] Fluoxetine Negative Negative 04/25/2025 12:18 PM EDT [facility] Guaifenesin Negative Negative 04/25/2025 12:18 PM EDT [facility] Haloperidol Negative Negative 04/25/2025 12:18 PM EDT [facility] Heroin/6-INES Negative Negative 04/25/2025 12:18 PM EDT [facility] Hydrocodone Negative Negative 04/25/2025 12:18 PM EDT [facility] Hydroxyzine / Cetirizine metabolite Negative Negative 04/25/2025 12:18 PM EDT [facility] Ibuprofen Negative Negative 04/25/2025 12:18 PM EDT [facility] Imipramine Negative Negative 04/25/2025 12:18 PM EDT [facility] Ketamine Negative Negative 04/25/2025 12:18 PM EDT [facility] Labetolol Negative Negative 04/25/2025 12:18 PM EDT [facility] Lamotrigine Negative Negative 04/25/2025 12:18 PM EDT [facility] Levetiracetam Negative Negative 04/25/2025 12:18 PM EDT [facility] Lidocaine Negative Negative 04/25/2025 12:18 PM EDT [facility] MDA Negative Negative 04/25/2025 12:18 PM EDT [facility] MDMA Negative Negative 04/25/2025 12:18 PM EDT [facility] Memantine Negative Negative 04/25/2025 12:18 PM EDT [facility] Meperidine Negative Negative 04/25/2025 12:18 PM EDT [facility] Meprobamate Negative Negative 04/25/2025 12:18 PM EDT [facility] Metaxalone Negative Negative 04/25/2025 12:18 PM EDT [facility] Methamphetamine Negative Negative 12:18 PM EDT [facility] Methocarbamol Negative Negative 04/25/2025 12:18 PM EDT [facility] Methylecgonine Negative Negative 04/25/2025 12:18 PM EDT [facility] Metoclopramide Negative Negative 04/25/2025 12:18 PM EDT [facility] Metoprolol Negative Negative 04/25/2025 12:18 PM EDT [facility] Metronidazole Negative Negative 04/25/2025 12:18 PM EDT [facility] Midazolam Negative Negative 04/25/2025 12:18 PM EDT [facility] Midazolam Metabolite Negative Negative 04/01 12:18 PM EDT [facility] Mirtazapine Negative Negative 04/25/2025 12:18 PM EDT [facility] Misc Test Result Negative Negative 04/25/20 12:18 PM EDT [facility] Naproxen Negative Negative 04/25/2025 12:18 PM EDT [facility] Nefazodone Negative Negative 04/25/2025 12:18 PM EDT [facility] Norfentanyl Negative Negative 04/25/2025 12:18 PM EDT [facility] Nortriptyline Negative Negative 04/25/2025 12:18 PM EDT [facility] Ordanstron Negative Negative 04/25/2025 12:18 PM EDT [facility] Oxcarbazepine Negative Negative 04/25/2025 12:18 PM EDT [facility] Oxycodone Negative Negative 04/25/2025 12:18 PM EDT [facility] Paroxethine Negative Negative 04/25/2025 12:18 PM EDT [facility] Phenobarbital Negative Negative 04/25/2025 12:18 PM EDT [facility] Phentermine Negative Negative 04/25/2025 12:18 PM EDT [facility] Phenytoin Negative Negative 04/25/2025 12:18 PM EDT [facility] Primidone Negative Negative 04/25/2025 12:18 PM EDT [facility] Promethazine Negative Negative 04/25/2025 12:18 PM EDT [facility] Propofol Negative Negative 04/25/2025 12:18 PM EDT [facility] Propranolol Negative Negative 04/25/2025 12:18 PM EDT [facility] Quetiapine Negative Negative 04/25/2025 12:18 PM EDT [facility] Quinine Negative Negative 04/25/2025 12:18 PM EDT [facility] Rantidine Negative Negative 04/25/2025 12:18 PM EDT [facility] Sertraline Negative Negative 04/25/2025 12:18 PM EDT [facility] Spironolactone Negative Negative 04/25/2025 12:18 PM EDT [facility] Tizanidine Negative Negative 04/25/2025 12:18 PM EDT [facility] Topiramate Negative Negative 04/25/2025 12:18 PM EDT [facility] Tramadol Negative Negative 04/25/2025 12:18 PM EDT [facility] Trazadone/ Trazadone metabolite Negative Negative 04/25/2025 12:18 PM EDT [facility] Trimethoprim Negative Negative 04/25/2025 12:18 PM EDT [facility] Valproic Acid Negative Negative 04/25/2025 12:18 PM EDT [facility] Venlafaxine Negative Negative 04/25/2025 12:18 PM EDT [facility] Verapamil Negative Negative 04/25/2025 12:18 PM EDT [facility] Zolpidem Negative Negative 04/25/2025 12:18 PM EDT [facility] Xylazine Negative Negative 04/25/2025 12:18 PM EDT [facility] Urine Urine specimen obtained by clean catch procedure / Unknown Non-blood Collection / Unknown 04/23/2025 9:24 PM EDT 04/23/2025 10:17 PM EDT us Betinara Donato Hall APRN LAB URINE ORDERABLES Fi nal Result [facility] [address] [place] [address] * (ABNORMAL) Urinalysis with reflex microscopic (Culture NOT Included) (04/23/2025 9:24 PM EDT) Color, Urine Yellow LAB URINALYSIS - AUTOMATED METHOD 04/23/2025 10:20 PM EDT [facility] Clarity, Urine Clear LAB URINALYSIS - AUTOMATED METHOD 04/23/2025 10:20 PM EDT [facility] Spec [place], Urine 1.012 1.005 - 1.030 LAB URINALYSIS - AUTOMATED METHOD 04/23/2025 10:20 PM EDT [facility] pH, Urine 7.5 5.0 - 8.0 LAB URINALYSIS - AUTOMATED METHOD 04/23/2025 10:20 PM EDT [facility] Protein, Urine Negative Negative mg/dL LAB URINALYSIS - AUTOMATED METHOD 04/23/2025 10:20 PM EDT [facility] Glucose, Urine Negative Negative mg/dL LAB URINALYSIS - AUTOMATED METHOD 04/23/2025 10:20 PM EDT [facility] Ketones, Urine 15(A) Negative mg/dL LAB URINALYSIS - AUTOMATED METHOD 04/23/2025 10:20 PM EDT [facility] Blood, Urine Negative Negative LAB URINALYSIS - AUTOMATED METHOD 04/23/2025 10:20 PM EDT [facility] Bilirubin, Urine Negative Negative LAB URINALYSIS - AUTOMATED METHOD 04/23/2025 10:20 PM EDT [facility] Urobilinogen, Urine 0.2 0.2 to 1.0 mg/dL LAB URINALYSIS - AUTOMATED METHOD 04/23/2025 10:20 PM EDT [facility] Leukocytes, Urine Negative Negative LAB URINALYSIS - AUTOMATED METHOD 04/23/2025 10:20 PM EDT [facility] Nitrite, Urine Negative Negative LAB URINALYSIS - AUTOMATED METHOD 04/23/2025 10:20 PM EDT [facility] Urine Urine specimen obtained by clean catch procedure / Unknown Non-blood Collection / Unknown 04/23/2025 9:24 PM EDT 04/23/2025 10:17 PM EDT Toni Lee APRN LAB URINE ORDERABLES Fin al Result [facility] [address] [place] [address] * Lavonne auris Surveillance by PCR (04/23/2025 9:19 PM EDT) Lavonne auris PCR Result Not Detected Not Detected 04/24/2025 11:53 AM EDT [facility] Swab (Axilla and Groin) Non-blood Collection / Unknown 04/23/2025 9:19 PM EDT 04/23/2025 10:17 PM EDT Narrative [facility] - 04/24/2025 11:53 AM EDT This PCR assay was developed and its performance characteristics determined by [facility] as appropriate for clinical purposes. This assay has not been cleared or approved by the FDA, but is performed in a CLIA regulated laboratory that is qualified to perform high-complexity testing. This PCR assay was developed and its performance characteristics determined by [facility] as appropriate for clinical purposes. This assay has not been cleared or approved by the FDA, but is performed in a CLIA regulated laboratory that is qualified to perform high-complexity testing. Betina Hall APRN LAB MICROBIOLOGY - GENE RAL ORDERABLES Final Result [facility] [address] [place] [address] * Multi Drug Resistance Test (04/23/2025 9:19 PM EDT) Culture No growth at day 1 04/25/2025 5:24 AM EDT [facility] Swab (Nares and Haven Rectal) Non-blood Collection / Unknown 04/23/2025 9:19 PM EDT 04/23/2025 10:17 PM EDT Narrative [facility] - 04/25/2025 5:24 AM EDT This test was developed and its performance characteristics determined by the [facility] Microbiology Laboratory. Although the media is FDA-approved, it is not FDA-approved for all specimen types submitted. The FDA has determined that such clearance or approval is not necessary. This test is used for surveillance purposes. It should not be regarded as investigational or for research. The [facility] Microbiology Laboratory is certified under the Clinical Laboratory Improvement Amendments of 1988 (CLIA-88) as qualified to perform high complexity clinical laboratory testing. Betina Hall APRN LAB MICROBIOLOGY - GENE [facility] ORDERABLES Final Result [facility] [address] [place] [address] * [place] CRITICAL CARE, E/M 30-74 MINUTES (04/23/2025 9:10 PM EDT) Narrative Toni Lee APRN - 04/23/2025 9:10 PM EDT Toni Lee APRN 04/24/2025 1:46 AM Critical Care Performed by: Toni Lee APRN Authorized by: Toni Lee APRN Critical care provider statement: Critical care time (minutes): 45 Critical care time was exclusive of: Separately billable procedures and treating other patients Critical care was time spent personally by me on the following activities: Review of old charts, ordering and review of radiographic studies, ordering and review of laboratory studies, examination of patient, evaluation of patient's response to treatment and development of treatment plan with patient or surrogate Toni Lee APRN IN CLINIC/BEDSIDE ORDERA BLES Edited Result - Final * Blood Culture (Aerobic/Anaerobet Set) (04/23/2025 8:30 PM EDT) Culture No growth at day 5 04/29/2025 1:04 AM EDT [facility] Blood Structure of right hand / Unknown Venipuncture / Unknown 04/23/2025 8:30 PM EDT 04/23/2025 8:44 PM EDT Toni Lee MICRO COMPUTER SPECIALIST LAB MICROBIOLOGY - GENER AL ORDERABLES Final Result Performing Organization Address [facility] Co de Phone Number [facility] [address] [place] [address] * Troponin T, High Sensitivity, 0 Hour Plasma, Reflex to 2 Hour (04/23/2025 8:10 PM EDT) Troponin T, High Sensitivity, 0 Hour <6 <19 ng/L 04/23/2025 8:42 PM EDT [facility] Blood Venous blood specimen / Unknown Venipuncture / Unknown 04/23/2025 8:10 PM EDT 04/23/2025 8:12 PM EDT Betina Hall MICRO COMPUTER SPECIALIST LAB BLOOD ORDERABLES Fi nal Result Performing Organization Address [facility] Phone Number [facility] [address] [place] [address] * Cortisol (04/23/2025 8:10 PM EDT) Cortisol 19.90 Before 10am: 3.7 - 19.4. After 5pm: 2.9 - 17.3 ug/dL 04/24/2025 1:06 AM EDT [facility] Comment:Testing performed on Craft Triple Valve Mechanic, standardized against [employer] Reference Standard concentration values assigned by LC-MS/MS and verified by BCR 192 and BCR 193 certified reference materials. Blood Venous blood specimen / Unknown Venipuncture / Unknown 04/23/2025 8:10 PM EDT 04/23/2025 8:12 PM EDT [facility]F LAB BLOOD AND F LUID ORD Final Result Performing Organization Address [facility] Co de Phone Number [facility] [address] [place] [address] * (ABNORMAL) Hepatic function panel (04/23/2025 8:10 PM EDT) Conjugated Bilirubin, Plasma 0.3 <=0.3 mg/dL 04/23/2025 10:32 PM EDT [facility] Alkaline Phosphatase, Plasma 42 40 - 115 U/L 04/23/2025 10:32 PM EDT [facility] Total Bilirubin, Plasma 0.7 0.2 - 1.1 mg/dL 04/23/2025 10:32 PM EDT [facility] Albumin, Plasma 3.4(L) 3.5 - 5.2 g/dL 04/23/2025 10:32 PM EDT [facility] Total Protein 5.1(L) 6.3 - 7.9 g/dL 04/23/2025 10:32 PM EDT [facility] ALT, Plasma 17 10 - 50 U/L 04/23/2025 10:32 PM EDT [facility] AST, Plasma 27 10 - 50 U/L 04/23/2025 10:32 PM EDT [facility] Blood Venous blood specimen / Unknown Venipuncture / Unknown 04/23/2025 8:10 PM EDT 04/23/2025 8:12 PM EDT us Toni Lee MICRO COMPUTER SPECIALIST LAB BLOOD ORDERABLES Fin al Result Performing Organization Address City/State/[facility] Co de Phone Number [facility] [address] [place] [address] * Procalcitonin, Plasma (04/23/2025 6:36 PM EDT) [facility] Procalcitonin, Plasma <0.06 <0.09 ng/mL 04/23/2025 8:50 PM EDT [facility] Blood Venous blood specimen / Unknown Venipuncture / Unknown 04/23/2025 6:36 PM EDT 04/23/2025 6:41 PM EDT Narrative [facility] - 04/23/2025 8:50 PM EDT Procalcitonin concentrations in healthy individuals are <0.09 ng/mL. Published data support the following interpretive risk assessment: An elevated procalcitonin result does not always indicate sepsis. Various non-infectious conditions are known to increase procalcitonin. Results should be considered in the context of clinical symptoms and other laboratory tests. Procalcitonin >2.0 ng/mL: Concentrations >2.0 ng/mL on the first day of ICU admission are associated with a higher risk of progression to severe sepsis and/or septic shock. The change in PCT over time may help predict 28 day mortality risk. Please consult www.damovk-rkb-[email or web address] for more information. Test performed at [facility]. Betina Hall APRN LAB BLOOD ORDERABLES Fi nal Result Performing Organization Address [facility] de Phone Number [facility] [address] [place] [address] * N-Terminal ProBNP, Plasma (04/23/2025 6:36 PM EDT) N-Terminal, PROBNP, Plasma 84 0 - 899 pg/mL 04/23/2025 8:50 PM EDT [facility] Blood Venous blood specimen / Unknown Venipuncture / Unknown 04/23/2025 6:36 PM EDT 04/23/2025 6:41 PM EDT Betina Hall APRN LAB BLOOD ORDERABLES Fi nal Result Performing Organization Address [facility] Phone Number [facility] [address] [place] [address] * Thyroid Stimulating Hormone, Plasma (04/23/2025 6:36 PM EDT) Thyroid Stimulating Hormone, Plasma 0.49 0.40 - 4.20 uIU/mL 04/23/2025 7:17 PM EDT [facility] Blood Venous blood specimen / Unknown Venipuncture / Unknown 04/23/2025 6:36 PM EDT 04/23/2025 6:41 PM EDT Momo Mesa MD LAB BLOOD ORDERABLES Final Resul t Performing Organization Address [facility] de Phone Number [facility] [address] [place] [address] * Free T4, Plasma (04/23/2025 6:36 PM EDT) Free T4, Plasma 1.3 0.8 - 1.7 ng/dL 04/23/2025 7:17 PM EDT [facility] Blood Venous blood specimen / Unknown Venipuncture / Unknown 04/23/2025 6:36 PM EDT 04/23/2025 6:41 PM EDT Momo Mesa MD LAB BLOOD ORDERABLES Final Resul t Performing Organization Address [facility] Co de Phone Number [facility] [address] [place] [address] * (ABNORMAL) Hemoglobin A1c (04/23/2025 6:36 PM EDT) Hemoglobin A1c 5.7(H) <5.7 % 04/24/2025 12:00 PM EDT [facility] Blood Venous blood specimen / Unknown Venipuncture / Unknown 04/23/2025 6:36 PM EDT 04/23/2025 6:40 PM EDT Narrative [facility] - 04/24/2025 12:00 PM EDT HA1C Interpretive Data: Diagnosis of Diabetes: Diabetic > or = 6.5% Pre-diabetic 5.7 to 6.4% Non-diabetic < or = 5.6% Glycemic Targets for Type I and Type II Diabetics: Non- Adults <7.0% Adults <6.0% Children and Adolescents <7.5% Source: [place] [employer]. Standards of medical care in diabetes,2017. Diabetes Care.2017:40 (suppl 1):S1-S135. Betina Hall APRN LAB BLOOD ORDERABLES Fi nal Result Performing Organization Address City/[facility]/ZIP Co de Phone Number [facility] [address] [place] [address] * (ABNORMAL) Blood gas panel, venous (04/23/2025 6:36 PM EDT) pH, Venous 7.48(H) 7.32 - 7.43 LAB HEMATOLOGY METHOD 04/23/2025 6:52 PM EDT [facility] pCO2, Venous 27(L) 40 - 55 mmHg LAB HEMATOLOGY METHOD 04/23/2025 6:52 PM EDT [facility] pO2, Venous 31 25 - 40 mmHg LAB HEMATOLOGY METHOD 04/23/2025 6:52 PM EDT [facility] SO2, Measured, Venous 62(L) 65 - 80 % LAB HEMATOLOGY METHOD 04/23/2025 6:52 PM EDT [facility] Base Excess, Venous -2.0 -2.0 - 3.0 mmol/L LAB HEMATOLOGY METHOD 04/23/2025 6:52 PM EDT [facility] Bicarbonate, Calculated, Venous 20(L) 22 - 26 mmol/L LAB HEMATOLOGY METHOD 04/23/2025 6:52 PM EDT [facility] Hematocrit, Whole Blood 42.4 40.0 - 51.0 % LAB HEMATOLOGY METHOD 04/23/2025 6:52 PM EDT [facility] Sodium, Whole Blood 117(LL) 136 - 145 mmol/L LAB HEMATOLOGY METHOD 04/23/2025 6:52 PM EDT [facility] Potassium, Whole Blood 4.2 3.6 - 4.9 mmol/L LAB HEMATOLOGY METHOD 04/23/2025 6:52 PM EDT [facility] Chloride, Whole Blood 88(L) 97 - 107 mmol/L LAB HEMATOLOGY METHOD 04/23/2025 6:52 PM EDT [facility] Glucose, Whole Blood 95 74 - 99 mg/dL LAB HEMATOLOGY METHOD 04/23/2025 6:52 PM EDT [facility] Lactate, Venous, Whole Blood 0.9 0.5 - 2.2 mmol/L LAB HEMATOLOGY METHOD 04/23/2025 6:52 PM EDT [facility] Ionized Calcium, Whole Blood 4.4(L) 4.6 - 5.1 mg/dL LAB HEMATOLOGY METHOD 04/23/2025 6:52 PM EDT [facility] Blood Venous blood specimen / Unknown Venipuncture / Unknown 04/23/2025 6:36 PM EDT 04/23/2025 6:40 PM EDT us Momo Mesa MD LAB BLOOD ORDERABLES Final Resul t [facility] [address] [place] [address] * [place] CRITICAL CARE, E/M 30-74 MINUTES (04/23/2025 6:21 PM EDT) Narrative Momo Mesa MD - 04/23/2025 6:21 PM EDT Momo Mesa MD 04/23/2025 8:06 PM Critical Care Performed by: Momo Mesa MD Authorized by: Momo Mesa MD Critical care provider statement: Critical care time (minutes): 35 Critical care time was exclusive of: Separately billable procedures and treating other patients and teaching time Critical care was time spent personally by me on the following activities: Development of treatment plan with patient or surrogate, discussions with primary provider, evaluation of patient's response to treatment, examination of patient, review of old charts, ordering and review of laboratory studies and ordering and performing treatments and interventions I assumed subsequent critical care for this patient from a provider in my division, on the same day: no us Momo Mesa MD IN CLINIC/BEDSIDE ORDERABLES Fin al Result * CT OUTSIDE IMAGES (04/23/2025 3:39 PM EDT) Only the most recent of3 resultswithin the time period is included. Anatomical Region Laterality Modality Computed Tomogra phy 04/23/2025 3:39 PM EDT us Roberto Forman DO IMG CT PROCEDURES Final Resu lt from Last 3 Months Additional Health Concerns Infection Onset Date Last Indicated Enteropathogenic E. coli (EPEC) 04/24/2025 04/24/[address] [facility] Advance Directives * Full Code (Latest Code Status on File) Date Activated Date Inactivated Comments 04/23/2025 8:00 PM 04/28/2025 6:44 PM Question Answer Comments I have reviewed the capacity from the link above and, if needed, have updated to appropriate status: Yes Care Teams Thread Tool Grinder Set Up Operator Relationship Specialty Start Date End Date Alessio Gilliland MD [address] [place] [address] PCP - General 04/25/25
--- OUTSIDE RECORDS SUMMARY | 2025-07-15 15:33 | XMS_ITS | Encounter Summary ---
Author Organization Healthcare Address [address] [place] [address] Care Team Providers Care Seal Extrusion Operator Name Role Phone Alessio Gilliland MD Primary Care Provider [phone] Reason for Visit * Reason Onset Date Comments Med Refill 06/19/2025 Encounter Details Date Type Department Care Team (Late st Contact Info) Description 06/19/2025 Refill [facility] Endocrinology [address] [place] [address] Courtney Baxter, DO [address] [facility] [address] [place] [address] Juan Jose's disease (CMS/HCC) Social History Tobacco Use Types [...] any time in the past 12 m [facility], were you homeless or living in a snf (including now)? No 04/25/2025 Utilities Answer Date Recorded In the past 12 months has th e [employer], gas, oil, or water company threatened to shut off services in your home? No 04/25/2025 Sex and Gender Information Value Date Recorded Sex Assigned at Not on file Legal Sex Male 8:37 PM EDT Gender Identity Not on file Sexual Orientation Not on file documented as of this encounter Miscellaneous Notes * Telephone Encounter - Courtney Baxter DO - 06/20/2025 2:40 PM EDT Yes. Okay to refill. documented in this encounter Plan of Treatment Upcoming Encounters Date Type Department Care Team (Late st Contact Info) Description 09/11/2025 11:40 AM EST Office Visit [facility] [address] [place] [phone] Courtney Baxter DO [address] [facility] [address] [place] [phone] documented as of this encounter Visit Diagnoses Diagnosis Juan Jose's disease (CMS/HCC) Glucocorticoid deficiency documented in this [...] documented as of this encounter Care Teams Seal Extrusion Operator Relationship Specialty Start Date End Date Alessio Gilliland MD [address] [place] [address] PCP - General 04/25/25 documented as of this encounter
--- OUTSIDE RECORDS SUMMARY | 2025-07-15 15:34 | XMS_ITS | Encounter Summary ---
Author Organization Healthcare Address [address] [place] [address] Care Team Providers Care Project Systems Engineer Name Role Phone Shaun Watts MD Primary Care Provider [phone] Alessio Gilliland MD Primary Care Provider [phone] Reason for Visit * Reason Comments Med Refill Encounter Details Date Type Department Care Team (Late st Contact Info) Description 01/08/2022 Refill [facility] [address] [place] [address] Adrian Oh DO Social History Tobacco Use Types Packs/Day Years [...] AM EST Office Visit [facility] [address] [place] [address] Courtney Baxter DO [address] [place] [address] documented as of this encounter Visit Diagnoses Not on filedocumented in this encounter Additional Health Concerns Infection Onset Date Last Indicated Resolved Time Gastrointestinal Rule-Out 04/23/2025 04/24/2025 6:11 PM EDT Enteropathogenic E. coli (EPEC) 04/24/2025 documented as of this encounter Care Teams Project Systems Engineer Relationship Specialty Start Date End Date Shaun Watts MD [address] [facility] [address] [place] [address] PCP - General 03/13/21 04/24/25 Alessio Gilliland MD [address] [facility] [address] [place] [address] PCP - General 04/25/25 documented as of this encounter
--- OUTSIDE RECORDS SUMMARY | 2025-07-15 15:34 | XMS_ITS | Encounter Summary ---
Author Organization Healthcare Address [address] [place] [address] Care Team Providers Care Showroom Salesperson Name Role Phone Alessio Gilliland MD Primary Care Provider [phone] Encounter Details Date Type Department Care Team (Late st Contact Info) Description 05/16/2025 Telephone [facility] [address] [place] [phone] Britni Bae RN [facility] ENDOCR[facility]IC Social History Tobacco Use Types Packs/Day Years [...] any time in the past 12 m [facility], were you homeless or living in a jail (including now)? No 04/25/2025 Utilities Answer Date Recorded In the past 12 months has th e [employer], gas, oil, or water [employer] threatened to shut off services in your home? No 04/25/2025 Sex and Gender Information Value Date Recorded Sex Assigned at Not on file Legal Sex Male 8:37 PM EDT Gender Identity Not on file Sexual Orientation Not on file documented as of this encounter Miscellaneous Notes * Telephone Encounter - Iqra Prieto RN - 05/20/2025 4:10 PM EDT Uploaded letter to [employer] and mailed copy to address provided, called patient to notify. * Telephone Encounter - Nery De La Rosa - 05/17/2025 3:23 PM EDT Status Update Call #1 1st call regarding the status of the initial request. Best contact number: [phone] (mobile) Optimal time of day to reach caller: ANYTIME Additional comments/information from caller: Pt is requesting a callback from Iqra dean: has not been able to come to the clinic to curing pickling packer the letter that Britni has for him. Could that please be put in his MyChart and mail it to [phone] [facility] [address] Note: Please do not reply to this message. Follow-up communication and further actions as a result of this message need to be communicated with the patient directly, if the patient is not active onMyChart. If the patient is active on MyChart, they will receive notification of the communication/outcome via [employer]. * Telephone Encounter - Courtney Baxter DO - 05/17/2025 7:27 AM EDT I had sent you a copy of the letter as well and I am unsure why he was not able to open it. But I have just re-emailed it you again and added about having SoluCortef available * Telephone Encounter - Britni Bae RN - 05/16/2025 10:43 AM EDT Patient called in stating did not think splitting Florinef was going to be a problem. Patient did request a letter to carry his Emergency Solu cortef injection kit and also list the syringe to pull up medication due to in case if stopped will not get charged with Paraphernalia. Patient stated you wrote a letter before and he could not open it. Please have letter ready so that he may curing pickling packer this afternoon at our facility. Britni Bae RN documented in this encounter Plan of Treatment Upcoming Encounters Date Type Department Care Team (Late st Contact Info) Description 09/11/2025 11:40 AM EST Office Visit [facility] Endocrinology [address] [place] [phone] Courtney Baxter DO [address] [place] [address] documented as of this encounter [...] documented as of this encounter Care Teams Showroom Salesperson Relationship Specialty Start Date End Date Alessio Gilliland MD [address] [place] [address] PCP - General 04/25/25 documented as of this encounter
--- OUTSIDE RECORDS SUMMARY | 2025-07-15 15:34 | XMS_ITS | Encounter Summary ---
Author Organization Healthcare Address [address] [place] [address] Care Team Providers Care Flag Signalman Name Role Phone Alessio Gilliland MD Primary Care Provider [phone] Reason for Visit * Reason Onset Date Comments HCN - Patient Message 05/13/2025 Encounter Details Date Type Department Care Team (Late st Contact Info) Description 05/13/2025 Telephone [facility] [address], [address] [place] [address] Courtney Baxter, DO [address] [facility] [address] [place] [address] HCN - Patient Message Social History Tobacco Use Types Packs/Day Years [...] any time in the past 12 m [facility], were you homeless or living in a assisted (including now)? No 04/25/2025 Utilities Answer Date Recorded In the past 12 months has th e [employer] gas, oil, or water company threatened to shut off services in your home? No 04/25/2025 Sex and Gender Information Value Date Recorded Sex Assigned at Not on file Legal Sex Male 8:37 PM EDT Gender Identity Not on file Sexual Orientation Not on file documented as of this encounter Miscellaneous Notes * Telephone Encounter - Britni Bae RN - 06/13/2025 2:02 PM EDT Contacted patient regarding lab results and recommendations. Patient verbalized understanding and provided teach back Britni Bae RN * Telephone Encounter - Britni Bae RN - 06/13/2025 11:19 AM EDT Attempted to contact left VM for return call Britni Bae RN * Telephone Encounter - Courtney Baxter DO - 06/13/2025 11:10 AM EDT Please call and let patient know his sodium remains normal (138 on these labs). Continue current dose of Prednisone and Fludrocortisone. * Telephone Encounter - Britni Bae RN - 06/13/2025 10:47 AM EDT Contacted [facility] spoke with Emeli rolon requested lab results be faxed to our office. Monitor for lab results Britni Bae RN * Telephone Encounter - Britni Bae RN - 06/10/2025 11:59 AM EDT Attempted to contact to see if patient had completed labs. VM left for return call Britni Bae RN * Telephone Encounter - Britni Bae RN - 05/27/2025 3:05 PM EDT Lab order faxed to [facility] submission confirmed. Contacted and updated patient Britni Bae RN * Telephone Encounter - Courtney Baxter DO - 05/15/2025 2:13 PM EDT So I was wrong. I called the pharmacy here and they only carry the 0.1 mg tablet form so I think heis going to have to split it. And they said he should be able to if it is scored. If he does not think he can, then we could either leave the dose the same at 0.2 or even reduce back to 0.1 mg per day. * Telephone Encounter - Courtney Baxter DO - 05/15/2025 12:15 PM EDT Please let patient know he will need to either split those or I can send these to pharmacy for him * Telephone Encounter - Courtney Baxter DO - 05/15/2025 11:51 AM EDT Can you check with [facility] and see if they can get the split tabs for Florinef if I send it in? I need him to take 0.15 mg daily. Right now it is only showing up as being available at * Telephone Encounter - Britni Bae RN - 05/15/2025 11:34 AM EDT Lab order faxed to [facility] submission confirmed. Contacted and updated patient who stated he was having trouble with scored tablets of Florinef requested the 5 mg of Florinef sent to [facility]. Britni Bae RN * Telephone Encounter - Courtney Baxter DO - 05/14/2025 4:29 PM EDT I called and discussed with him. We are adjusting his Florinef and he would like repeat labs on 05/25 at [facility]. I ordered repeat BMP so if you can have that sent over that would be great! Thanks! * Telephone Encounter - Britni Bae RN - 05/14/2025 8:47 AM EDT Contacted [facility] requested lab results be faxed to our facility. Monitorfor lab results Britni Bae RN * Telephone Encounter - Eladia Bender - 05/13/2025 5:01 PM EDT Patient Phone Message Reason for Call: Pt is requesting a call to discuss results. Best contact number and optimal time of day to reach caller: [phone] Note: Please do not reply to this message. Follow-up communication and further actions as a result of this message need to be communicated with the patient directly, if the patient is not active onMyChart. If the patient is active on MyChart, they will receive notification of the communication/outcome via MyChart. documented in this encounter Plan of Treatment Upcoming Encounters Date Type Department Care Team (Late st Contact Info) Description 09/11/2025 11:40 AM EST Office Visit [facility] [address] [place] [address] Courtney Baxter DO [address] [place] [id number] documented as of this encounter Visit Diagnoses [...] documented as of this encounter Care Teams Flag Signalman Relationship Specialty Start Date End Date Alessio Gilliland MD [address] [place] [address] PCP - General 04/25/25 documented as of this encounter
--- OUTSIDE RECORDS SUMMARY | 2025-07-15 15:34 | XMS_ITS | Encounter Summary ---
Author Organization Healthcare Address [address] [place] [address] Care Team Providers Care Accounting Practice Manager Name Role Phone Alessio Gilliland MD Primary Care Provider Encounter Details Date Type Department Care Team (Late st Contact Info) Description 05/14/2025 Results Follow-Up [facility] [address] [place] [address] Courtney Baxter, DO [address] [facility] [address] [place] [address] Social History Tobacco Use Types [...] any time in the past 12 m [facility], were you homeless or living in a [facility] (including now)? No 04/25/2025 Utilities Answer Date [...] as of this encounter Miscellaneous Notes * Result Encounter Note - Courtney Baxter DO - 05/14/2025 7:42 AM EDT Can you check to see if BMP was completed 05/13? He was supposed to do this at [facility]. Thanks! documented in this encounter Plan of Treatment Upcoming Encounters Date Type Department Care Team (Late st Contact Info) Description 09/11/2025 11:40 AM EST [facility] [address] [place] [address] Courtney Baxter DO [address] [facility] [address] [place] [id number] documented as of this encounter Visit Diagnoses [...] documented as of this encounter Care Teams Accounting Practice Manager Relationship Specialty Start Date End Date Alessio Gilliland MD [address] [place] [address] PCP - General 04/25/25 documented as of this encounter
[2025-07-15 18:04] LABS: Chloride 100 mmol/L (98-107); Potassium 3.8 mmoL/L (3.5-5.1); Sodium 139 mmol/L (136-145)
[2025-07-15 18:07] LABS: Anion Gap 12.8 mEq/L (5-15); Blood Urea Nitrogen 12 mg/dl (9-20); Calcium 10.1 mg/dl (8.4-10.2); Carbon Dioxide 30 mmol/L (22.0-30.0); Creatinine,Serum 0.70 mg/dl (0.66-1.25); Estimated Glomerular Filt Rate 119 ml/min (>60); GFR (African American) 144 ML/MIN (>60); Glucose 86 mg/dl (74-100)
== END 2025-07-15 23:59 | disposition home or self-care (01) ==
LOC: LAB 15:30
PROVIDERS: PCP Family Medicine; Visit Provider Family Medicine
DX: E87.1 Hypo-osmolality and hyponatremia (principal)
CPT/HCPCS: 36415; 80048

== ENCOUNTER 2025-10-14 12:26 | Outpatient (CLI) | payer BC, SELFPAY ==
[2025-10-14 13:10] LABS: Chloride 102 mmol/L (98-107)
[2025-10-14 13:11] LABS: Potassium 4.3 mmoL/L (3.5-5.1); Sodium 132 mmol/L (136-145)
[2025-10-14 13:14] LABS: Anion Gap 7.3 mEq/L (5-15); Blood Urea Nitrogen 13 mg/dl (9-20); Calcium 9.7 mg/dl (8.4-10.2); Carbon Dioxide 27 mmol/L (22.0-30.0); Creatinine,Serum 0.80 mg/dl (0.66-1.25); Estimated Glomerular Filt Rate 102 ml/min (>60); GFR (African American) 123 ML/MIN (>60); Glucose 88 mg/dl (74-100)
== END 2025-10-14 23:59 | disposition home or self-care (01) ==
LOC: LAB 12:27
PROVIDERS: PCP Family Medicine; Visit Provider Family Medicine
DX: F41.0 Panic disorder [episodic paroxysmal anxiety] (principal)
CPT/HCPCS: 36415; 80048